=== PATIENT | male | born 1985 | race Caucasian/White ===

== ENCOUNTER 2020-11-28 04:21 | Inpatient (IN) | payer BC, SELFPAY ==
[2020-11-28] VITALS (11 sets, daily range): BP systolic 118–164; BP diastolic 72–97; PULSE 103–124; RESP 12–18; TEMP 36.1–37.1; O2SAT 97–100; BMI 25.5
--- NOTE | 2020-11-28 04:16 | PM.IMHP ---
H&P: HPI History of Present Illness Date/Time: 11/28/20 04:16 The patient presents with nausea and vomiting that started since yesterday morning. He denies any other symptoms with no diarrhea or abdominal pain. He also denies any fever or chills. He was evaluated in the [facility] for his symptoms. Labs from the [facility] shows: Recent at the [facility] had a blood sugar of 428 BUN 33 creatinine 1.9 sodium 141 potassium 5.5 chloride 99 bicarbonate 11.5 calcium 9.5 benign gap of 30.5. His CBC results showed WBC of 16.5 hemoglobin of 13.4 hematocrit of 40.6 platelet count of 337. His gastric occult blood was positive. His serum ketone was 6.6 which is elevated. His magnesium is 1.8. EKG shows sinus tachycardia with borderline right axis deviation with a rate of 126. His blood pressure has been stable with tachycardia of 120s at the [facility]. He reports that he has not missed his dose of Tresiba. He was started on a DKA protocol with insulin drip. He was transferred to our hospital for further treatment. Chief Complaint: nausea, vomiting Review of Systems Review of Systems: Narrative: - CONSTITUTIONAL: Denies weight loss, fever and chills. - HEENT: Denies changes in vision and hearing - RESPIRATORY: Denies SOB and cough. - CV: Denies palpitations and CP. - GI: Denies abdominal pain, reports nausea, vomiting, no diarrhea - : Denies dysuria and urinary frequency. - MSK: Denies myalgia and joint pain. - SKIN: Denies rash and pruritus. - NEUROLOGICAL: Denies headache and syncope. - PSYCHIATRIC: Denies recent changes in mood. Denies anxiety and depression. 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 Spiritual care concerns: No Meds Home Medications and Allergies Home Medications Medication Instructions Recorded Confirmed Type flash glucose scanning reader #1 each 02/05/20 02/05/20 History flash glucose sensor #1 each 02/05/20 02/05/20 History duloxetine 60 mg capsule,delayed 60 mg PO DAILY #90 cap 08/17/20 Rx release insulin lispro 200 unit/mL (3 mL) 7 unit SUBCUT TID #12 ml MDD 45 10/01/20 Rx subcutaneous pen pen needle, diabetic 32 gauge x #400 each 10/11/20 Rx insulin degludec 100 unit/mL (3 See Rx Instructions .ROUTE 11/24/20 Rx mL) subcutaneous pen .COMPLEX #30 ml Allergies Allergy/AdvReac Type Severity Reaction Status Date / Time No Known Allergies Allergy Unverified 10/24/19 11:12 Exam Narrative: Exam Narrative: GENERAL: The patient is well developed, not in acute distress HEENT: Nonicteric sclerae, PERRLA, EOMI. Oropharynx clear, dry mucous membranes. Conjunctivae appear well perfused. CHEST: Chest wall is nontender. HEART: tachycardic, sinus tach, without murmur, rubs, or gallops LUNGS: Clear to auscultation bilaterally. no respiratory distress ABDOMEN: Soft, positive bowel sounds, non-tender, no organomegaly. SKIN: No rash, no excessive bruising, petechiae, or purpura. NEUROLOGIC: Cranial nerves II-XII intact, alert and oriented x 3, no gross motor deficits EXTREMITIES: no edema, cyanosis or clubbing Assessment and Plan Assessment and plan (1) DKA (diabetic ketoacidoses): Code(s): E11.10 - Type 2 diabetes mellitus with ketoacidosis without coma Status: Acute (2) Type 1 diabetes mellitus: Qualifiers: Diabetes mellitus complication status: with hyperglycemia Qualified Code(s): E10.65 - Type 1 diabetes mellitus with hypergl
--- NOTE | 2020-11-28 06:00 | ADMGEN ---
This patient, Nate Calixto, was admitted to Intensive Care Unit-9. Patient/family oriented to hospital policies and general routines including ID bracelet, bed and alarms, visiting hours, pain management, procedures, bathroom and other care routines, personal items, smoking policy, room service/diet, and visiting hours. Information on how to activate the Rapid Response Team has been discussed. Patient/Family are encouraged to report perceived risks to care and to ask questions if they do not understand what they are told or what they should do.
[2020-11-28] MEDS: ONDANSETRON INJ 4 MG/2 ML VIAL IV PUSH ×3 (06:13→19:56)
[2020-11-28 06:18] LABS: Glucose Point of Care 238 (65-105)
[2020-11-28] MEDS: PANTOPRAZOLE SODIUM IV 40 MG VIAL IV PUSH ×2 (06:40→18:24)
[2020-11-28] MEDS: KCL 20 MEQ/D5/0.45% SOD CHL 1,000 ML 150 ML IV CONT (06:40)
[2020-11-28] MEDS: INSULIN HUMAN REGULAR (*BKC) 100 UNITS in SODIUM CHLORIDE 0.9% IV 99 ML IV CONT ×2 (06:41→19:56)
[2020-11-28 06:46] LABS: Anion Gap 20 mmol/L (8-16); Blood Urea Nitrogen 29 mg/dL (9-20); Calcium 9.9 mg/dL (8.4-10.2); Carbon Dioxide 17 mmol/L (22-30); Chloride 105 mmol/L (98-107); Estimated CRCL calculation 64 ml/min; Estimated Glomerular Filt Rate 46; Glucose 220 mg/dL (75-110); Magnesium 1.7 mg/dL (1.6-2.3); Phosphorus 2.8 mg/dL (2.5-4.5); Potassium 4.7 mmol/L (3.4-5.0); Sodium 142 mmol/L (137-145)
[2020-11-28 06:46] LABS: Hemoglobin A1C 10.2 % (<5.7); Lactic Acid Reflex 2.3 mmol/L (0.7-2.1)
[2020-11-28] MEDS: MAGNESIUM SULF 1 GM/D5W 100 ML 1 GM/100 ML BAG IVPB (07:16)
[2020-11-28 08:09] LABS: Beta-Hydroxybutyrate/Acetoacetate 6.32 mmol/L (0.02-0.27)
[2020-11-28 08:32] LABS: Glucose Point of Care 288 (65-105)
[2020-11-28 09:08] LABS: Anion Gap 18 mmol/L (8-16); Blood Urea Nitrogen 27 mg/dL (9-20); Calcium 9.3 mg/dL (8.4-10.2); Carbon Dioxide 16 mmol/L (22-30); Chloride 105 mmol/L (98-107); Estimated CRCL calculation 68 ml/min; Estimated Glomerular Filt Rate 50; Glucose 296 mg/dL (75-110); Potassium 4.8 mmol/L (3.4-5.0); Sodium 139 mmol/L (137-145)
[2020-11-28] MEDS: DEXTROSE 5%/0.45% SOD CHL 1,000 ML 150 ML IV CONT (09:20)
[2020-11-28 09:30] LABS: Reflex Lactic Acid Yes or No Add Lactic
--- NOTE | 2020-11-28 09:47 | WPDCNINT ---
Assessment and Plan Assessment and plan (1) DKA (diabetic ketoacidoses): Code(s): E11.10 - Type 2 diabetes mellitus with ketoacidosis without coma Status: Acute Assessment and Plan: Patient has received IV fluid bolus and is on IV infusion Continue Insulin infusion and Q1H glucose monitoring Serial labs Replace electrolytes as needed Will transition to SC insulin once AG is closed (2) Type 1 diabetes mellitus: Qualifiers: Diabetes mellitus complication status: with hyperglycemia Qualified Code(s): E10.65 - Type 1 diabetes mellitus with hyperglycemia Code(s): E10.9 - Type 1 diabetes mellitus without complications Status: Acute Assessment and Plan: See above (3) CHAZ (acute kidney injury): Code(s): N17.9 - Acute kidney failure, unspecified Status: Acute Assessment and Plan: Likely prerenal secondary to dehydration and hypovolemia Baseline unknown Creatinine is improving Continue IV fluids and monitor urine output electrolytes (4) Diabetic neuropathy: Code(s): E11.40 - Type 2 diabetes mellitus with diabetic neuropathy, unspecified Status: Acute Assessment and Plan: Resume Duloxetine Additional Plan DVT prophylaxis -SCDs Nutrition -start clear liquid diet Code Status - Full Code Forcer Maker Consult Note Consult date: 11/28/20 Time Seen: 08:00 HPI: Nate Calixto is a 35 year old male who was transferred from outside hospital with DKA. Patient presented there with chief complaint of nausea vomiting for 1 day. In ER he was diagnosed with DKA. He was given IV fluid bolus and started on insulin infusion and transferred to [facility]. He told me that he was feeling fine until yesterday morning when he started having nausea vomiting and was unable to keep anything down. He denied any fever chest pain shortness of breath cough abdominal pain diarrhea. After few episodes of vomiting he had some blood tinge and has vomitus but it was not persistent. At this time patient feels better and denies any nausea vomiting at this time. He feels he is not back to his baseline but otherwise feels better and no specific symptoms. All the systems were reviewed and were negative Past medical history diabetes diagnosed in 2014. He takes long-acting insulin 30 units daily and 5 units with meals plus sliding scale. 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 Spiritual care concerns: No Meds Home Medications and Allergies Home Medications Medication Instructions Recorded Confirmed Type flash glucose scanning reader #1 each 02/05/20 11/28/20 History flash glucose sensor #1 each 02/05/20 11/28/20 History duloxetine 60 mg capsule,delayed 60 mg PO DAILY #90 cap 08/17/20 11/28/20 Rx release pen needle, diabetic 32 gauge x #400 each 10/11/20 11/28/20 Rx insulin degludec [Tresiba U-100 32 unit SUBCUT DAILY 11/28/20 11/28/20 History Insulin] insulin lispro [Humalog KwikPen See Rx Instructions .ROUTE .COMPLEX 11/28/20 11/28/20 History Insulin] Allergies Allergy/AdvReac Type Severity Reaction Status Date / Time No Known Allergies Allergy Unverified 10/24/19 11:12 Vital Signs Vital Signs - 24 hr 11/28/20 06:22 11/28/20 07:57 11/28/20 08:00 Temperature 36.3 C L 36.4 C L Pulse Rate 124 H 123 H 123 H Respiratory Rate 18 14 Blood Pressure 14
[2020-11-28 10:08] LABS: Glucose Point of Care 265 (65-105)
[2020-11-28 12:36] LABS: Lactic Acid 1.3 mmol/L (0.7-2.1)
[2020-11-28 12:37] LABS: Anion Gap 8 mmol/L (8-16); Blood Urea Nitrogen 25 mg/dL (9-20); Calcium 9.4 mg/dL (8.4-10.2); Carbon Dioxide 25 mmol/L (22-30); Chloride 108 mmol/L (98-107); Estimated CRCL calculation 73 ml/min; Estimated Glomerular Filt Rate 54; Glucose 197 mg/dL (75-110); Potassium 4.3 mmol/L (3.4-5.0); Sodium 141 mmol/L (137-145)
[2020-11-28 13:28] LABS: Glucose Point of Care 205 (65-105)
[2020-11-28 13:28] LABS: Glucose Point of Care 175 (65-105)
[2020-11-28 13:28] LABS: Glucose Point of Care 220 (65-105)
[2020-11-28 14:23] LABS: Glucose Point of Care 157 (65-105)
[2020-11-28] MEDS: SODIUM CHLORIDE 0.45% 1,000 ML 100 ML IV CONT ×2 (14:48→23:49)
[2020-11-28] MEDS: INSULIN GLARGINE (*BKC) 100 UNITS/ML 30 UNITS SUB-Q (14:48)
[2020-11-28 15:41] LABS: Glucose Point of Care 144 (65-105)
[2020-11-28 16:42] LABS: Anion Gap 8 mmol/L (8-16); Blood Urea Nitrogen 23 mg/dL (9-20); Calcium 9.1 mg/dL (8.4-10.2); Carbon Dioxide 26 mmol/L (22-30); Chloride 107 mmol/L (98-107); Estimated CRCL calculation 78 ml/min; Estimated Glomerular Filt Rate 58; Glucose 146 mg/dL (75-110); Potassium 4.2 mmol/L (3.4-5.0); Sodium 141 mmol/L (137-145)
[2020-11-28 17:23] LABS: Add Urine Microscopic? YES; Appearance Urine Clear (Clear); Bilirubin Urine Negative (Negative); Blood Urine Negative (Negative); Color Urine Yellow (Yellow); Glucose Urine UA 3+ mg/dL (Negative); Ketones Urine 2+ mg/dL (Negative); Leukocyte Esterase Ur Negative LEU/UL (NEGATIVE); Nitrate Urine Negative (Negative); Protein Urine 1+ mg/dL (Negative); RBC Urine 0-2 /hpf (0-2); Urobilinogen Urine Negative mg/dL (<2.0); WBC Urine 0-3 /hpf (0-3)
[2020-11-28 17:48] LABS: Glucose Point of Care 212 (65-105)
[2020-11-28 18:49] LABS: Glucose Point of Care 156 (65-105)
[2020-11-28] MEDS: ACETAMINOPHEN 325 MG TABLET 650 MG PO (18:49)
--- NOTE | 2020-11-28 19:12 | P.PNCROSS_ITS ---
Event Note Event Note Event Note: Patient admitted by my colleague early this morning. Chart reviewed. Continue current care as patient remains in the ICU. Defer to instructor ballroom dancing ongoing management at this time.
[2020-11-28 19:49] LABS: Glucose Point of Care 111 (65-105)
[2020-11-28 20:33] LABS: Anion Gap 8 mmol/L (8-16); Blood Urea Nitrogen 22 mg/dL (9-20); Calcium 9.4 mg/dL (8.4-10.2); Carbon Dioxide 26 mmol/L (22-30); Chloride 107 mmol/L (98-107); Estimated CRCL calculation 83 ml/min; Estimated Glomerular Filt Rate > 60; Glucose 117 mg/dL (75-110); Potassium 3.9 mmol/L (3.4-5.0); Sodium 141 mmol/L (137-145)
[2020-11-28 21:00] LABS: Glucose Point of Care 108 (65-105)
[2020-11-28] MEDS: METOCLOPRAMIDE HCL INJ 10 MG/2 ML VIAL IV PUSH (21:47)
[2020-11-28 23:59] LABS: Glucose Point of Care 191 (65-105)
[2020-11-29] VITALS (12 sets, daily range): BP systolic 112–180; BP diastolic 57–112; PULSE 100–121; RESP 13–22; TEMP 36.4–37.2; O2SAT 96–98; BMI 25.8
[2020-11-29 03:56] LABS: Glucose Point of Care 270 (65-105)
[2020-11-29] MEDS: INSULIN ASPART (*BKC) 100 UNITS/ML SUB-Q ×8 (04:07→16:40)
[2020-11-29] MEDS: ONDANSETRON INJ 4 MG/2 ML VIAL IV PUSH ×2 (04:10→12:38)
[2020-11-29 05:06] LABS: Hematocrit 33.6 % (42.0-52.0); Hemoglobin 11.3 g/dL (14.0-18.0); Mean Corpuscular HGB Conc 33.6 g/dl (32-36); Mean Corpuscular Hemoglobin 29.1 pg (26-34); Mean Corpuscular Volume 86.6 fl (80-100); Mean Platelet Volume 9.9 fl (7.4-10.4); Platelet Count Result 270 k/mm3 (150-375); Red Blood Count 3.88 M/mm3 (4.6-6.20); Red Cell Distribution Width 14.2 % (11.5-14.5); White Blood Count 8.9 K/mm3 (4.5-10.0)
[2020-11-29 05:19] LABS: Alanine Aminotransferase 15 U/L (4-50); Albumin Level 3.8 g/dL (3.5-5.1); Alkaline Phosphatase 73 U/L (38-126); Anion Gap 13 mmol/L (8-16); Aspartate Amino Transferase 28 U/L (17-59); Bilirubin,Total 0.7 mg/dL (0.2-1.3); Blood Urea Nitrogen 18 mg/dL (9-20); Calcium 9.2 mg/dL (8.4-10.2); Carbon Dioxide 22 mmol/L (22-30); Chloride 105 mmol/L (98-107); Estimated CRCL calculation 78 ml/min; Estimated Glomerular Filt Rate 58; Glucose 288 mg/dL (75-110); Magnesium 1.7 mg/dL (1.6-2.3); Sodium 140 mmol/L (137-145)
[2020-11-29] MEDS: PANTOPRAZOLE SODIUM IV 40 MG VIAL IV PUSH (05:50)
[2020-11-29 06:01] LABS: Glucose Point of Care 244 (65-105)
[2020-11-29 08:42] LABS: Glucose Point of Care 246 (65-105)
[2020-11-29] MEDS: INSULIN GLARGINE (*BKC) 100 UNITS/ML 40 UNITS SUB-Q (08:42)
--- NOTE | 2020-11-29 08:50 | PM.IMPN ---
Progress Note: A&P Assessment and Plan (1) DKA (diabetic ketoacidoses): Qualifiers: Diabetes mellitus type: type 1 Diabetes mellitus complication detail: without coma Qualified Code(s): E10.10 - Type 1 diabetes mellitus with ketoacidosis without coma Code(s): E11.10 - Type 2 diabetes mellitus with ketoacidosis without coma Status: Acute Assessment and Plan: Patient started on DKA protocol on admission. With anion gap closed, transitioned to Lantus, mealtime insulin and sliding scale insulin. Glucose reviewed on 11/29/2020 with level still in the 200s. Lantus increased today. Patient still with nausea. Will monitor. May be able to transfer from ICU later today if patient is stable. Telemetry reviewed on 11/29/2020 with mild sinus tachycardia. (2) Type 1 diabetes mellitus: Qualifiers: Diabetes mellitus complication status: with hyperglycemia Qualified Code(s): E10.65 - Type 1 diabetes mellitus with hyperglycemia Code(s): E10.9 - Type 1 diabetes mellitus without complications Status: Acute Assessment and Plan: Not well controlled with hemoglobin A1c 10.2. Will continue insulin as noted above. Continue to adjust treatment as needed. Will need to follow-up with his casing material weigher after discharge. (3) CHAZ (acute kidney injury): Code(s): N17.9 - Acute kidney failure, unspecified Status: Acute Assessment and Plan: Creatinine remains slightly elevated at 1.40 today. Remains on IV fluids. Will continue to monitor while here. (4) Diabetic neuropathy: Qualifiers: Diabetes mellitus type: type 1 Diabetes mellitus complication detail: diabetic polyneuropathy Qualified Code(s): E10.42 - Type 1 diabetes mellitus with diabetic polyneuropathy Code(s): E11.40 - Type 2 diabetes mellitus with diabetic neuropathy, unspecified Status: Acute Assessment and Plan: No acute issue at this time. Will continue duloxetine. Will monitor. Time Spent With Patient Time with patient: 15 - 25 minutes Subjective Date/time seen: 11/29/20 08:50 Interval history: Date of Service: 11/29/2020. Admitted with DKA. Discontinued from insulin drip approximately 9:00 p.m. last night. Still having some nausea this morning. Dry heaves noted but no vomiting this morning. Denies abdominal pain. No diarrhea. No headache or dizziness. No chest pain or shortness of breath. Is having some shaking at time of my exam. No fever. Review of Systems Review of Systems: Narrative: Still not feeling well. Constitutional: Constitutional: Denies chills and Denies fever(s) Eyes: Eyes: Reports no additional eye complaints ENT: Denies sore throat Cardiovascular: Cardiovascular: Denies chest pain Respiratory: Respiratory: Denies dyspnea Gastrointestinal: Gastrointestinal: Denies abdominal pain, Denies diarrhea, Reports nausea and Denies vomiting Genitourinary: Genitourinary: Reports no additional male genitourinary complaints Musculoskeletal: Musculoskeletal: Reports no additional musculoskeletal complaints Integumentary/Breasts: Skin/Breast: Denies lesions and Denies rash Neurologic: Denies dizziness and Denies headache(s) Psychiatric: Psychiatric: Denies anxiety Exam Narrative: Exam Narrative: Awake and alert. Const: General: No acute distress HENMT: Mouth: Yes moist mucous membranes Neck: Neck: supple and no lymphadenopathy noted Resp: Effort & Inspection: normal respiratory effort Auscultation: clear to auscultation bilaterally, no rales and no wheezes Cardio: Rate: regular rate Rhythm: regular rhythm GI: Inspection: non-distended GI Palp: No abdominal tenderness and Yes Soft to palpation Auscultation: normal bowel sounds : Other: Not examined Skin: General skin exam: normal color and no rashes or lesions noted Neuro: General: patient oriented x3 Other: Moving all extremities equally and well Extrem: General: no edema
[2020-11-29] MEDS: DULoxetine HCL 60 MG CAPSULE.DR PO (09:15)
[2020-11-29] MEDS: PROCHLORPERAZINE MALEATE 5 MG TABLET 10 MG PO (09:15)
--- NOTE | 2020-11-29 09:22 | WPDINTPN ---
Progress Note: A&P Assessment and Plan (1) DKA (diabetic ketoacidoses): Qualifiers: Diabetes mellitus type: type 1 Diabetes mellitus complication detail: without coma Qualified Code(s): E10.10 - Type 1 diabetes mellitus with ketoacidosis without coma Code(s): E11.10 - Type 2 diabetes mellitus with ketoacidosis without coma Status: Acute Assessment and Plan: P anion gap has closed but patient is still not eating regular diet Increase Lantus to 40 units subcu 5 units insulin with meals plus sliding scale Advance diet as tolerated (2) Type 1 diabetes mellitus: Qualifiers: Diabetes mellitus complication status: with hyperglycemia Qualified Code(s): E10.65 - Type 1 diabetes mellitus with hyperglycemia Code(s): E10.9 - Type 1 diabetes mellitus without complications Status: Acute Assessment and Plan: See above (3) CHAZ (acute kidney injury): Code(s): N17.9 - Acute kidney failure, unspecified Status: Acute Assessment and Plan: Likely prerenal secondary to dehydration and hypovolemia Baseline unknown Creatinine is improving Continue IV fluids and monitor urine output electrolytes (4) Diabetic neuropathy: Qualifiers: Diabetes mellitus type: type 1 Diabetes mellitus complication detail: diabetic polyneuropathy Qualified Code(s): E10.42 - Type 1 diabetes mellitus with diabetic polyneuropathy Code(s): E11.40 - Type 2 diabetes mellitus with diabetic neuropathy, unspecified Status: Acute Assessment and Plan: Resume Duloxetine (5) Nausea: Code(s): R11.0 - Nausea Status: Acute Assessment and Plan: Continue p.r.n. Zofran. I ordered 1 times Compazine. He did get a dose of Reglan last night but did not help Additional Plan DVT prophylaxis -SCDs Nutrition -advance as tolerated Code Status - Full Code Subjective Date/time seen: 11/29/20 1315 Patient states he feels better than yesterday but continues to have some nausea. He drank 1 bottle of Ensure for dinner yesterday but had vomiting. At this time he states he was going to try food this morning. He denies any other complaints abdominal pain fever chest pain shortness of breath cough headache diarrhea . He was transitioned off of insulin infusion last night since his anion gap was closed and insulin drip was at 2-3 units/hour Review of Systems Review of Systems: All systems reviewed & are unremarkable except as noted in HPI and below (HPI) Exam Narrative: Exam Narrative: General: Pt is alert awake and in NAD Lungs/Chest: Trachea central Clear BS B/L, No crackles or wheezing. Cardiac: RRR. Normal S1 S2. No murmurs Circulation: Pedal pulses are intact and symmetrical. Abdomen: Normal bowel sounds.. Soft. NT. ND. Extremities: No clubbing, cyanosis or edema. Warm : Bailey in place Neurologic: Follows commands. Moves all 4 extremities PERRL Skin: No Rash Objective Data Vital Signs Vital Signs: Vital Signs - 24 hr 11/28/20 10:00 11/28/20 12:00 11/28/20 14:00 Temperature 36.1 C L Pulse Rate 120 H 113 H 112 H Respiratory Rate 14 12 16 Blood Pressure 127/72 154/94 H Pulse Oximetry 98 98 97 11/28/20 15:50 11/28/20 16:00 11/28/20 18:00 Temperature 36.9 C Pulse Rate 103 H 103 H 111 H Respiratory Rate 14 12 Blood Pressure 164/97 H 118/73 Pulse Oximetry 98 99 11/28/20 20:00 11/28/20 22:00 11/29/20 00:00 Temperature 37.1 C 36.8 C Pulse Rate 110 H 114 H 110 H Respiratory Rate 13 12 22 H Blood Pressure 149/82 H 137/88 167/90 H Pulse Oximetry 99 98 96 11/29/20 02:00 11/29/20 04:00 11/29/20 06:00 Temperature 36.8 C Pulse Rate 100 104 H 121 H Respiratory Rate 18 16 22 H Blood Pressure 112/57 L 141/68 H 140/89 Pulse Oximetry 97 97 96 11/29/20 08:00 Temperature 37.0 C Pulse Rate 111 H Respiratory Rate 22 H Blood Pressure 122/98 H Pulse Oximetry 98 Intake/Output Intake/Output: Intake & Output 11/26/20
[2020-11-29] MEDS: SODIUM CHLORIDE 0.45% 1,000 ML 50 ML IV CONT (10:14)
[2020-11-29 11:05] LABS: Glucose Point of Care 244 (65-105)
[2020-11-29] MEDS: LABETALOL HCL INJ 100 MG/20 ML VIAL 20 MG IV PUSH (12:38)
[2020-11-29] MEDS: METOCLOPRAMIDE HCL 5 MG TABLET PO (16:36)
[2020-11-29 16:51] LABS: Glucose Point of Care 222 (65-105)
--- NOTE | 2020-11-29 18:00 | PC.NURSE ---
This patient, Nate Calixto, was transferred to [facility] on 11/29/20 at 1800. Personal belongings sent with patient. Report given to HARRY Pena. Appropriate documentation sent with patient.
--- NOTE | 2020-11-29 18:01 | PC.NURSE ---
This patient, Nate Calixto, was received from ICU on 11/29/20 at 1800. Patient/family oriented to unit policies and routines
[2020-11-29] MEDS: PANTOPRAZOLE 40 MG TABLET PO (20:47)
[2020-11-29 21:39] LABS: Glucose Point of Care 295 (65-105)
[2020-11-30] VITALS (7 sets, daily range): BP systolic 135–182; BP diastolic 78–82; PULSE 91–109; RESP 16–18; TEMP 36.2–36.7; O2SAT 98–100
[2020-11-30] MEDS: LABETALOL HCL INJ 100 MG/20 ML VIAL 20 MG IV PUSH (00:40)
[2020-11-30 02:36] LABS: Glucose Point of Care 232 (65-105)
[2020-11-30 04:13] LABS: Glucose Point of Care 204 (65-105)
[2020-11-30] MEDS: ACETAMINOPHEN 325 MG TABLET 650 MG PO (05:32)
[2020-11-30 05:46] LABS: Hematocrit 32.9 % (42.0-52.0); Hemoglobin 11.1 g/dL (14.0-18.0); Mean Corpuscular HGB Conc 33.7 g/dl (32-36); Mean Corpuscular Hemoglobin 28.9 pg (26-34); Mean Corpuscular Volume 85.7 fl (80-100); Mean Platelet Volume 9.7 fl (7.4-10.4); Platelet Count Result 215 k/mm3 (150-375); Red Blood Count 3.84 M/mm3 (4.6-6.20); Red Cell Distribution Width 13.4 % (11.5-14.5); White Blood Count 6.3 K/mm3 (4.5-10.0)
[2020-11-30 06:03] LABS: Alanine Aminotransferase 16 U/L (4-50); Albumin Level 3.7 g/dL (3.5-5.1); Alkaline Phosphatase 67 U/L (38-126); Anion Gap 4 mmol/L (8-16); Aspartate Amino Transferase 27 U/L (17-59); Blood Urea Nitrogen 14 mg/dL (9-20); Calcium 9.3 mg/dL (8.4-10.2); Carbon Dioxide 33 mmol/L (22-30); Chloride 100 mmol/L (98-107); Estimated CRCL calculation 98 ml/min; Estimated Glomerular Filt Rate > 60; Glucose 234 mg/dL (75-110); Magnesium 1.6 mg/dL (1.6-2.3); Potassium 3.5 mmol/L (3.4-5.0); Sodium 137 mmol/L (137-145)
[2020-11-30] MEDS: METOCLOPRAMIDE HCL 5 MG TABLET PO (07:58)
[2020-11-30] MEDS: DULoxetine HCL 60 MG CAPSULE.DR PO (08:01)
[2020-11-30] MEDS: amLODIPine BESYLATE 5 MG TABLET PO (08:01)
[2020-11-30] MEDS: PANTOPRAZOLE 40 MG TABLET PO (08:01)
[2020-11-30] MEDS: INSULIN ASPART (*BKC) 100 UNITS/ML SUB-Q ×4 (08:21→12:34)
[2020-11-30] MEDS: INSULIN GLARGINE (*BKC) 100 UNITS/ML 40 UNITS SUB-Q (08:22)
[2020-11-30 08:58] LABS: Glucose Point of Care 248 (65-105)
[2020-11-30 11:50] LABS: Glucose Point of Care 221 (65-105)
--- NOTE | 2020-11-30 12:12 | PM.DS ---
DS: Admitting Diagnosis Admitting Diagnosis Admitting Diagnosis: Nausea and vomiting DS: Discharge Diagnosis Discharge Diagnosis (1) DKA (diabetic ketoacidoses): Qualifiers: Diabetes mellitus complication detail: without coma Diabetes mellitus type: type 1 Qualified Code(s): E10.10 - Type 1 diabetes mellitus with ketoacidosis without coma Code(s): E11.10 - Type 2 diabetes mellitus with ketoacidosis without coma Status: Acute Assessment and Plan: Patient started on DKA protocol on admission. With anion gap closed, he was transitioned to Lantus, mealtime insulin and sliding scale insulin. Nausea resolved. Glucose with level still in the 200s so Lantus increased. wellness educator and auto bumper mechanic worked with patient. (2) Type 1 diabetes mellitus: Qualifiers: Diabetes mellitus complication status: with hyperglycemia Qualified Code(s): E10.65 - Type 1 diabetes mellitus with hyperglycemia Code(s): E10.9 - Type 1 diabetes mellitus without complications Status: Acute Assessment and Plan: Not well controlled with hemoglobin A1c 10.2. Patient states his glucose normally runs in the 160-180 range but has been running into the 250 range more recently. He has not followed up with his milling machine operator recently. He is not sure why his glucose has become more poorly controlled. He has adjusted his diet without much benefit. Patient was instructed to check glucose 4 times a day and to follow-up with his milling machine operator after discharge. (3) CHAZ (acute kidney injury): Code(s): N17.9 - Acute kidney failure, unspecified Status: Acute Assessment and Plan: Creatinine was elevated at 1.9 on admission related to pre-renal/dehydration from the DKA. With IV fluids, Cr has improved to 1.1 today. Elevated BP noted at times but felt more likely related to the DKA and fluids. Will stop Norvasc and have him follow up with his doctor for re-evaluation. (4) Diabetic neuropathy: Qualifiers: Diabetes mellitus complication detail: diabetic polyneuropathy Diabetes mellitus type: type 1 Qualified Code(s): E10.42 - Type 1 diabetes mellitus with diabetic polyneuropathy Code(s): E11.40 - Type 2 diabetes mellitus with diabetic neuropathy, unspecified Status: Acute Assessment and Plan: No acute issue at this time. Patient states he has a history neurogenic bladder in the past requiring straight cath but does not straight cath anymore. He has no issues during the day but has to wear depends at night he states. We continued duloxetine. DS: Summary Hospital Course Reason for hospitalization: 35yo male with Type I DM here for nausea and vomiting and found to have DKA. Please see H&P for details. Hospital Course: Please see above for details hospital course. Status at Discharge Cognitive/behavioral status at discharge: Stable Time Spent with Patient Time attestation: Total time spent providing and/or coordinating discharge services: 35 minutes Time spent: Greater than 30 minutes Specific discharge activities: patient Education Exam Narrative: Exam Narrative: AF 97.2 135/82 109 18 100% ra Gen - NARD Chest - CTA bilaterally, nml RR CV - RRR S1/S2 Abd -Soft. Nontender. Bladder does feel distended Ext - No pedal edema Psych - Nml mood and affect Skin - Warm and dry DS: Data Data Completed and Pending Labs on day of discharge: Labs from last 24 hours 11/30/20 11/30/20 11/30/20 11:47 08:20 05:27 WBC RBC Hgb Hct MCV MCH MCHC RDW Plt Count MPV Sodium 137 Potassium 3.5 Chloride 100 Carbon Dioxide 33 H Anion Gap 4 L BUN 14 Creatinine 1.10 Estim Creat Clear Calc 98 Estimated GFR > 60 Glucose 234 H POC Capillary Glucose 221 H 248 H Calcium 9.3 Magnesium 1.6 Total Bilirubin 1.0 AST 27 ALT 16 Alkaline Phosphatase 67 Total
[2020-11-30 12:28] LABS: Glucose Point of Care 228 (65-105)
--- NOTE | 2020-12-06 15:26 | PC.NURSE ---
Blood cx are negative. Dr. Bhupinder gentile.
--- NOTE | 2020-12-10 12:37 | PC.NURSE ---
Blood cx are negative. Dr. Roe is aware.
== END 2020-11-30 13:43 | disposition home or self-care (01) | DRG 638 ==
LOC: ANHICU 11-29 17:55 → ANH2MED 11-30 12:31 → ANHICU 12-02 09:52
PROVIDERS: Internal Medicine; Admitting Provider Internal Medicine; PCP Internal Medicine; Visit Provider Internal Medicine
DX: E10.10 Type 1 diabetes mellitus with ketoacidosis without coma (principal); N17.9 Acute kidney failure, unspecified; E10.42 Type 1 diabetes mellitus with diabetic polyneuropathy; E10.319 Type 1 diabetes mellitus with unspecified diabetic retinopathy without macular edema; D72.829 Elevated white blood cell count, unspecified; Z79.4 Long term (current) use of insulin
CPT/HCPCS: 36415; 80048; 80053; 81001; 82010; 82948; 83036; 83605; 83735; 84100; 85027; 87040; 97161; 97165; A9270; C9113; J1815; J2405; J2765; J3475; J3480

== ENCOUNTER 2022-09-09 10:48 | Day surgery (SDC) | payer BC, SELFPAY ==
[2022-09-09] VITALS (14 sets, daily range): BP systolic 132–181; BP diastolic 90–116; PULSE 84–104; RESP 12–20; TEMP 36.3–36.7; O2SAT 94–99
--- NOTE | ~2022-09-09 | XR_ITS ---
XR urethrocystogram Urethrocystogram TECHNIQUE: Fluoroscopy used during Urethrocystogram performed by [Carlos Ramirez MD] on 09/09/2022. 126 seconds of fluoroscopy. with 60 images captured.] FINDINGS: Retrograde contrast administration into the urethra demonstrates multiple strictures in the proximal urethra, although there is retrograde filling of contrast into the bladder. Correlate with procedure note. IMPRESSION: Fluoroscopy used during Urethrocystogram. Please refer to procedural report for details. Reviewed, dictated and finalized at location A. DINATOR SKILL TRAINING PROGRAM IMPRESSION: Fluoroscopy used during Urethrocystogram. Please refer to procedura l report for details.
--- NOTE | 2022-09-09 11:11 | ED.MALEGU ---
HPI - Male Genitourinary General Chief complaint: Urogenital-Male Stated complaint: kimble placement History of Present Illness HPI Narrative: Patient is a 37-year-old male who presents ER for Kimble catheter placement. He was transferred here from [facility]. Patient has history of neurogenic bladder related to diabetes. He self catheterizes. He had improved however the last couple weeks he has been having increased difficulty urinating. He was transferred here because urology is planning on placing Kimble catheter as patient cannot be accessed by multiple nurses and the physician at outside hospital. Related Data Home Medications Medication Instructions Recorded Confirmed insulin admin supplies (InPen (for #1 ea 06/08/22 06/08/22 Humalog) Blue subcutaneous) Allergies Allergy/AdvReac Type Severity Reaction Status Date / Time No Known Allergies Allergy Verified 09/09/22 11:16 Review of Systems Review of Systems: All systems reviewed & are unremarkable except as noted in HPI and below Constitutional: Constitutional: Denies chills and Denies fever(s) Gastrointestinal: Gastrointestinal: Denies nausea and Denies vomiting Genitourinary: Genitourinary: Denies dysuria, Denies penile discharge and Denies testicular pain Comments: Urinary retention PMFSH Past Medical History Medical History CHAZ (acute kidney injury) Alopecia areata Body mass index (BMI) 21 to less than 23 (06/04/18) Diabetic neuropathy DKA (diabetic ketoacidoses) Erectile dysfunction Hypertension Low vitamin D level Right foot ulcer Secondary male hypogonadism Type 1 diabetes mellitus with hyperglycemia Surgical History Surgical History Previous back surgery tailbone infection, and removal of part of the tailbone Family History Family History Mother Diabetes mellitus Other Cerebrovascular accident Family history of hearing loss Hypertension Social History Social History Smoking status: Never smoker Alcohol intake: current Alcohol use details: socially Substance use: never Living arrangements: with family Occupation/Education: occupation 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 HEAD: Normocephalic, atraumatic. ENT: Mucous membranes moist. NECK: Supple. CHEST: Clear to auscultation. No respiratory distress. HEART: Regular rate and rhythm. Normal peripheral pulses. ABDOMEN: Soft, mild suprapubic tenderness with palpation without guarding, nondistended. EXTREMITIES: Normal range of motion. No edema. SKIN: Warm, dry, no rash. NEURO: Alert and oriented x3. PSYCH: Normal mood and affect. Course Course Emergency Course: Patient will go to the OR with Dr. Ramirez for Kimble placement. Vital Signs Vital signs: Vital Signs Temperature 98.1 F 09/09/22 10:47 Pulse Rate 103 H 09/09/22 10:47 Respiratory Rate 15 09/09/22 10:47 Blood Pressure 181/112 H 09/09/22 10:47 Pulse Oximetry 99 09/09/22 10:47 Oxygen Delivery Room Air 09/09/22 10:47 Temperature 97.3 F L 09/09/22 14:10 Pulse Rate 84 09/09/22 15:49 Respiratory Rate 12 09/09/22 15:49 Blood Pressure 132/105 H 09/09/22 15:49 Pulse Oximetry 97 09/09/22 14:45 Oxygen Delivery Room Air 09/09/22 15:49 MDM - Male Genitourinary Lab Data Labs: Lab Results 09/09/22 Range/Units 14:35 POC Capillary Glucose 201 H (65-105) mg/dl Discharge Plan Discharge Clinical Impression: Acute urinary retention Patient Disposition: Still a Patient Condition: Stable Additional Instructions: discharged home with Kimble cathete
--- NOTE | 2022-09-09 11:39 | PC.NURSE ---
urologist here at bedside, will try to insert catheter.
--- NOTE | 2022-09-09 12:10 | PC.NURSE ---
Pt will need to go to OR, urologist not able to complete the procedure at bedside.
--- NOTE | 2022-09-09 12:29 | WPDANESEPPF ---
Anes - Initial Pre Proc Eval Procedure: Operation Date: 09/09/22 13:15 Proposed Procedures p Cystoscopy, Urethral Dilatation - Carlos Ramirez MD Date/Time: 09/09/22 12:29 Pre Op Diagnosis: kimble placement Patient Data Age: 37 Gender: M Height: 1.88 m Weight: 97.5 kg Last Vital Signs Temp 36.7 C 09/09/22 10:47 Pulse 103 H 09/09/22 12:01 Resp 18 09/09/22 12:01 BP 159/105 H 09/09/22 12:01 Pulse Ox 99 09/09/22 11:31 O2 Del Method Room Air 09/09/22 10:47 Allergies Allergy/AdvReac Type Severity Reaction Status Date / Time No Known Allergies Allergy Verified 09/09/22 11:16 Home Medications Medication Instructions Recorded Confirmed Type OneTouch Verio test strips (blood #400 ea 10/19/21 06/08/22 Rx sugar diagnostic) insulin degludec 100 unit/mL (3 See Rx Instructions .Route 02/09/22 06/08/22 Rx mL) subcutaneous pen (Tresiba .COMPLEX #36 mL FlexTouch U-100 insulin) blood-glucose sensor (FreeStyle #6 ea 06/08/22 06/08/22 Rx Shahrzad 3 Sensor device) insulin admin supplies (InPen (for #1 ea 06/08/22 06/08/22 History Humalog) Blue subcutaneous) insulin lispro 100 unit/mL 75 unit (0.75 mL) subcut DAILY 90 06/08/22 06/08/22 Rx subcutaneous cartridge (Humalog days #75 mL U-100 Insulin) ciprofloxacin HCl 500 mg tablet 500 mg PO Q12H #20 tabs 06/13/22 Rx (Cipro) pen needle, diabetic 32 gauge x #400 ea 07/10/22 Rx 5/32 (BD Sydnie 2nd Gen Pen Needle) duloxetine 60 mg capsule,delayed 60 mg PO DAILY 90 days #90 caps 08/21/22 Rx release Patient hx anesthesia problems: none Family hx anesthesia problems: none Results Review: All pre-operative results and documents have been reviewed as part of the pre-operative evaluation. [facility] Past Medical History Medical History CHAZ (acute kidney injury) Alopecia areata Body mass index (BMI) 21 to less than 23 (06/04/18) Diabetic neuropathy DKA (diabetic ketoacidoses) Erectile dysfunction Hypertension Low vitamin D level Right foot ulcer Secondary male hypogonadism Type 1 diabetes mellitus with hyperglycemia Surgical History Surgical History Previous back surgery tailbone infection, and removal of part of the tailbone Family History Family History Mother Diabetes mellitus Other Cerebrovascular accident Family history of hearing loss Hypertension Social History Social History Smoking status: Never smoker Alcohol intake: current Alcohol use details: socially Substance use: never Living arrangements: with family Occupation/Education: occupation 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 Informed Consent: The patient's anesthetic plan and its attendant risks and benefits were discussed with the patient/family/POA. Questions were solicited and answers provided to the satisfaction of the patient/family/POA.
--- NOTE | 2022-09-09 13:06 | PM.IMHP ---
H&P: HPI History of Present Illness Date/Time: 09/09/22 13:06 Chief Complaint: urinary retention Narrative: 37-year-old male who has had some difficulty voiding over the past day or 2. He also had developed some bilateral flank pain. Mansoor presented to [place] where they were unable to place a catheter and had a bladder scan residual 600 cc. Patient is transferred to [place] for more definitive therapy. Patient states that he has not catheterized for many years. [facility] Past Medical History Medical History CHAZ (acute kidney injury) Alopecia areata Body mass index (BMI) 21 to less than 23 (06/04/18) Diabetic neuropathy DKA (diabetic ketoacidoses) Erectile dysfunction Hypertension Low vitamin D level Right foot ulcer Secondary male hypogonadism Type 1 diabetes mellitus with hyperglycemia Surgical History Surgical History Previous back surgery tailbone infection, and removal of part of the tailbone Family History Family History Mother Diabetes mellitus Other Cerebrovascular accident Family history of hearing loss Hypertension Social History Social History Smoking status: Never smoker Alcohol intake: current Alcohol use details: socially Substance use: never Living arrangements: with family Occupation/Education: occupation 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 Spiritual care concerns: No Meds Home Medications and Allergies Home Medications Medication Instructions Recorded Confirmed Type OneTouch Verio test strips (blood #400 ea 10/19/21 06/08/22 Rx sugar diagnostic) insulin degludec 100 unit/mL (3 See Rx Instructions .Route 02/09/22 06/08/22 Rx mL) subcutaneous pen (Tresiba .COMPLEX #36 mL FlexTouch U-100 insulin) blood-glucose sensor (FreeStyle #6 ea 06/08/22 06/08/22 Rx Shahrzad 3 Sensor device) insulin admin supplies (InPen (for #1 ea 06/08/22 06/08/22 History Humalog) Blue subcutaneous) insulin lispro 100 unit/mL 75 unit (0.75 mL) subcut DAILY 90 06/08/22 06/08/22 Rx subcutaneous cartridge (Humalog days #75 mL U-100 Insulin) ciprofloxacin HCl 500 mg tablet 500 mg PO Q12H #20 tabs 06/13/22 Rx (Cipro) pen needle, diabetic 32 gauge x #400 ea 07/10/22 Rx /32 (BD Sydnie 2nd Gen Pen Needle) duloxetine 60 mg capsule,delayed 60 mg PO DAILY 90 days #90 caps 08/21/22 Rx release Allergies Allergy/AdvReac Type Severity Reaction Status Date / Time No Known Allergies Allergy Verified 09/09/22 11:16 Vital Signs Vital Signs - 24 hr 09/09/22 10:47 09/09/22 11:16 09/09/22 10:56 Temperature 36.7 C Pulse Rate 103 H 100 94 Respiratory Rate 15 18 18 Blood Pressure 181/112 H 181/112 H Pulse Oximetry 99 96 98 Oxygen Delivery Room Air 09/09/22 11:01 09/09/22 11:31 09/09/22 12:01 Temperature Pulse Rate 98 104 H 103 H Respiratory Rate 20 18 Blood Pressure 176/116 H 181/104 H 159/105 H Pulse Oximetry 97 99 Oxygen Delivery 09/09/22 12:39 Temperature Pulse Rate 99 Respiratory Rate 18 Blood Pressure 150/90 H Pulse Oximetry 98 Oxygen Delivery Exam Const: General: cooperative and well developed; No comfortable Chest: Chest palpation & inspection: normal inspection of the chest Resp: Effort & Inspection: normal respiratory effort Cardio: Rate: regular rate Rhythm: regular rhythm GI: Inspection: normal to inspection : Penis: Yes normal penis and Yes circumcised Scrotum: scrotum normal Assessment and Plan Assessment and plan (1) Urinary retention: Code(s): R33.9 - Retention of urine, unspecified Status: Acute Assessment and Plan: who etiology unclear but may be more now due to his urethral strictur
--- NOTE | 2022-09-09 13:11 | WPDHPUPDATE1 ---
History and Physical Update Update Date/Time: 09/09/22 13:11 History and Physical has been reviewed, including an updated exam of the patient. There are NO changes in the patient's condition. Risks, benefits, and alternatives have been discussed and questions answered. Patient agrees to proceed with procedure. proceed with cystoscopy, retrograde urethrogram, urethral dilation, possible suprapubic tube placement
[2022-09-09] MEDS: LIDOCAINE HCL 2% GEL UROJET 10 ML PKG MUCOUS MEM (13:44)
--- NOTE | 2022-09-09 14:06 | P.OP_ITS ---
Procedure Note - Detailed Date of Procedure 09/09/22 Pre-op Diagnosis Urethral stricture Post-op Diagnosis Same ( dense bulbar urethral stricture) Procedure Performed cystoscopy, retrograde urethrogram, urethral dilation, complex Bailey catheter placement 10 Vincentian Bailey with 10 cc in balloon Surgeon Carlos Ramirez MD Anesthesia General Findings extremely tight dense stricture which could not be dilated past 12 Vincentian. Description of Procedure Patient is taken the operative suite correctly identified. Once anesthesia was obtained was placed in dorsal lithotomy position and prepped draped usual sterile fashion. Retrograde urethrogram was performed which revealed a very tight stricture which appeared to be about a cm in length in the bulbar urethra. Twenty-two Vincentian scope was inserted into the urethra. I was able to manipulate a angled Glidewire through this very tight stricture. I then used an 8 Vincentian open-ended dilator that was included in the amplants kit to place over the Glidewire and was able to dilated into the bladder. Even this 8 Vincentian was very tight. I then exchanged the Glidewire for a Super Stiff wire. It was very difficult but I was able to dilate to a 12 Vincentian but that was the extent of it. Could not dilate any further. At this point a 10 Vincentian catheter was placed over the guidewire into the bladder. 10 cc in the balloon were placed. I did aspirate 150 cc of fluid from the bladder and then connected it to drainage. Patient was taken recovery stable condition. I would not remove this Bailey catheter at this point time. Patient will need to have an evaluation by a reconstructive urologist due to this very tight dense stricture. I will have him see our partner Dr. Tobias. Please send a copy this to my office. Estimated Blood Loss 0 Drains Yes ( 10 Vincentian Bailey) Packing No Pathology None sent Complications No immediate complications Condition Stable Disposition PACU
[2022-09-09] MEDS: LACTATED RINGERS 1,000 ML 30 ML IV CONT (14:10)
[2022-09-09] MEDS: HALOPERIDOL LACTATE 5 MG/ML VIAL 1 MG IV PUSH (14:20)
[2022-09-09] MEDS: SCOPOLAMINE 1.5 MG PATCH TRANSDERM (14:20)
--- NOTE | 2022-09-09 14:37 | P.OP_ITS ---
Procedure Note - Detailed Date of Procedure 09/09/22 Pre-op Diagnosis Urinary retention Post-op Diagnosis Same (Tight bulbar urethral stricture) Procedure Performed Flexible cystoscopy at bedside in the emergency room Surgeon Carlos Ramirez MD Anesthesia Local Description of Procedure Patient was prepped and draped usual sterile fashion. 2% viscous lidocaine was inserted into the urethra. Sixteen Indonesian flexible scope was inserted into the meatus. Patient was noted to have a very tight bulbar urethral stricture. We attempted to place a guidewire through the stricture or unsuccessfully patient was extremely uncomfortable. At this point the procedure was terminated. Patient will be taken to the operative suite for formal operative intervention Estimated Blood Loss 0 Drains No Packing No Pathology None sent Complications No immediate complications Condition Stable Disposition Other (To the operating room)
[2022-09-09 14:39] LABS: Glucose Point of Care 201 mg/dl (65-105)
--- NOTE | 2022-09-09 14:55 | SUR.PHASEI ---
anestesia aware of glucose of 201 and elevated bp. no orders at this time and ok to dc home.
--- NOTE | 2022-09-09 15:32 | SUR.PHASEII ---
pt going home with catheter, he is familiar on how to use, he is a [employer], pt discharged home with mother in stable condition.
== END 2022-09-09 15:55 | disposition still patient (30) ==
LOC: ANHED 09-11 10:33
PROVIDERS: Urology; PCP Family Medicine; Visit Provider Emergency Medicine
PROC: 0T7D8ZZ Dilation of Urethra, Via Natural or Artificial Opening Endoscopic (ICD-10-PCS; CPT 52281; principal; 2022-09-09 13:15)
DX: N35.912 Unspecified bulbous urethral stricture, male (principal); R33.8 Other retention of urine; N31.9 Neuromuscular dysfunction of bladder, unspecified; E10.69 Type 1 diabetes mellitus with other specified complication; E10.40 Type 1 diabetes mellitus with diabetic neuropathy, unspecified; I10 Essential (primary) hypertension; Z79.4 Long term (current) use of insulin
CPT/HCPCS: 52281; 51610; 74450; 82948; 99285; A9270; C1726; C1769; J1630; J2250; J3010; J7030; J7120

== ENCOUNTER 2022-09-13 15:46 | Outpatient (CLI) | payer BC, SELFPAY ==
[2022-09-13 16:56] LABS: Anion Gap 6 mmol/L (8-16); Blood Urea Nitrogen 25 mg/dL (9-20); Calcium 9.7 mg/dL (8.4-10.2); Carbon Dioxide 31 mmol/L (22-30); Chloride 100 mmol/L (98-107); Estimated Glomerular Filt Rate 38; Glucose 92 mg/dL (65-110); HDL Direct 38 mg/dL; Potassium 4.4 mmol/L (3.4-5.0); Sodium 137 mmol/L (137-145)
[2022-09-13 17:08] LABS: LDL Cholesterol Direct 56 mg/dL
[2022-09-13 17:17] LABS: Vitamin D 25 Hydroxy 19.3 ng/mL
== END 2022-09-13 15:47 | disposition home or self-care (01) ==
LOC: ANHWCLAB 15:47
PROVIDERS: PCP Family Medicine; Visit Provider Internal Medicine Endocrinology, Diabetes & Metabolism
DX: E10.65 Type 1 diabetes mellitus with hyperglycemia (principal); Z71.3 Dietary counseling and surveillance
CPT/HCPCS: 36415; 80048; 82306; 83718; 83721; 84443

== ENCOUNTER 2025-03-01 16:06 | Emergency (ER) | payer OTHER, SELFPAY ==
--- OUTSIDE RECORDS SUMMARY | 2025-03-01 16:09 | XMS_ITS | Clinical Summary ---
Author Organization [facility] Address [address] [address] Care Team Providers Care Bit Grinder Name Role Phone Jamal Palmer MD Primary Care Provider [phone] Source Comments [facility],non-owned Affiliates and Associated Physician Practices is amultiple site organization consisting of ambulatory clinics and hospital sitesin [place], [place], [place] and [place]. This disclosure is being madepursuant to the Care Everywhere program and may not contain all information available regarding this patient. Last updated 18.[facility] Allergies No known active allergies Medications * Be aware that medications may not be up to date on this document. Alwaysverify current medications with the patient. gabapentin (NEURONTIN) 800 MG tablet TK 1 T PO TID 0 8 Active ONETOUCH DELICA LANCETS 33G MISC USE TO TEST TID 3 8 Active insulin syringe-needle (BD ULTRAFINE) 29G X 1/2 0.5 ML syringe USE TO INJECT INSULIN QID 3 8 Active HUMALOG vial 0 8 Active HYDROcodone-ac etaminophen (NORCO) 5-325 MG tablet TK 1 TO 2 TS PO Q 4 H PRN, 10/325mg 0 8 Active insulin glargine (LANTUS) vial Inject subcutaneously at bedtime 40 units at HS Active Active Problems No known active problems Family History Medical History Relation Name Comments CVA Mother Cancer - Other Paternal Grandfather Hypertension Paternal Grandfather Renal Disease Paternal Grandfather Cancer - Other Paternal Grandmother Hypertension Paternal Grandmother Renal Disease Paternal Grandmother Relation Name Status Comments Mother Paternal Grandfather Paternal Grandmother Social History Tobacco Use Types Packs/Day Years Used Date Smoking Tobacco: Never Smokeless Tobacco: Never Alcohol Use Standard Drinks/Week Comments No 0 (1 standard drink = 0.6 oz pur e alcohol) Sex and Gender Information Value Date Recorded Sex Assigned at Not on file Legal Sex Male 11:27 AM CDT Gender Identity Not on file Sexual Orientation Not on file Last Filed Vital Signs Vital Sign Reading Time Taken Comments Blood Pressure 117/81 05/28/2018 3:27 PM [employer]PERVIS[employer]LE [employer] Pulse 93 05/28/2018 3:27 PM [employer] Temperature 36.3 C (97.4 F) 05/28/2018 3:27 PM [employer] Respiratory Rate 18 05/28/2018 3:27 PM [employer] Oxygen Saturation 98% 05/28/2018 3:27 PM [employer] Inhaled Oxygen Concentration - - Weight 79.6 kg (175 lb 6.4 oz) 05/28/2018 3:27 P M [employer] Height 188 cm (6' 2) 05/28/2018 3:27 PM [employer] Body Mass Index 22.52 05/28/2018 3:27 PM [employer] Plan of Treatment Health Maintenance Due Date Last Done Comments HIV SCREENING 2001 HEPATITIS C SCREENING 04/07/2004 DTAP/TDAP/TD VACCINES (1 - Tdap) 2005 HEPATITIS B VACCINE (1 of 3 - 19+ 3-dose series) 2005 HPV VACCINE (1 - 3-dose SCDM series) 2013 COVID-19 VACCINE (1 - 2023- season) 2024 DEPRESSION SCREENING 07/23/2024 INFLUENZA VACCINE (#1) 2025 0, 08/06/2019, 06/09/2018, Additional history exists ZOSTER VACCINE (1 of 2) 2036 HIB VACCINE Aged Out No longer eligi ble based on patient's age to complete this topic MENINGOCOCCAL (Group B) VACCINE SHARED DECISION-MAKING Aged Out No longer eligible based on patient's age to complete this topic MENINGOCOCCAL GROUPS A/C/Y/W VACCINE Aged Out No longer eligible based on patient's age to complete this topic PNEUMOCOCCAL VACCINE Aged Out No long er eligible based on patient's age to complete this topic [place] [address] [address] [address] Care Teams Bit Grinder Relationship Specialty Start Date End Date Jamal Palmer MD [address] [place] [address] [place] [address] [phone] PCP - General Internal Medicine 05/24/18
--- OUTSIDE RECORDS SUMMARY | 2025-03-01 16:09 | XMS_ITS | Encounter Summary ---
Author Organization [facility] Address [facility] [place] [address] Care Team Providers Care Oysterman Name Role Phone Jamal Palmer MD Primary Care Provider [phone] Isael Spear MD Primary Care Provider [phone] Anju Rodriguez Primary Care Provider [phone] Encounter Details Date Type Department Care Team (Late st Contact Info) Description 12/09/2018 CHILD WELFARE MANAGER ONLY [facility] Priority [facility] - [address] [place] [address] Scanned, Documents Social History Tobacco Use Types Packs/Day Years Used Date Smoking Tobacco: Never Smokeless Tobacco: Never Alcohol Use Standard Drinks/Week Comments No 0 (1 standard drink = 0.6 oz pur e alcohol) AUDIT-C Answer Date Recorded Frequency of Alcohol Consumption Never 12/02/2018 Average Number of Drinks Not on file 019 Frequency of Binge Drinking Not on file 11/20 Sex and Gender Information Value Date Recorded Sex Assigned at Not on file Legal Sex Male 9:39 PM CDT Gender Identity Not on file Sexual Orientation Not on file documented as of this encounter Progress Notes * Zscanned, Documents - 12/09/2018 12:00 AM CDT ETIENNE CALIXTO MD: ACCT: [id number] ADMIT/SERVICE DATE: 12/09/18 DISCHARGE DATE: : 1985 PT TYPE: PRE CLI SEX: M ORD SITE: [facility] REPORT OF PATHOLOGICAL EXAMINATION DATE OF SURGERY: 12/09/2018 SURGICAL PATH NO: [id number] DATE OBTAINED: 12/09/2018 DATE RETURNED: CHART DOCUMENT PATHOLOGICAL DIAGNOSIS: I. PUNCH BIOPSY OF ANTERIOR SCALP -EXTENSIVE NECROSIS OF EPIDERMIS WITH CHRONIC INFLAMMATION OF DERMIS AND FAT NECROSIS - CASE SENT TO [facility] ON 12/12/28 FOR EXPERT CONSULTATION, PLEASE SEE ATTACHED REPORT. II. PUNCH BIOPSY OF POSTERIOR SCALP -FIBROSIS WITH NORMAL HAIR AND SEBACEOUS FOLLICLES. SPECIMEN: #1 PUNCH BIOPSY OF ANTERIOR SCALP #2 POSTERIOR SCALP PUNCH BIOPSY GROSS EXAMINATION: THE SPECIMEN IS RECEIVED IN FORMALIN IN TWO PORTIONS. THE FIRST PORTION IS LABELED PUNCH BIOPSY OF ANTERIOR SCALP. IT CONSISTS OF A PUNCH BIOPSY OF SOMEWHAT PIGMENTED HERNANDEZ/MERLOS SKIN THAT MEASURES 0.3 CM IN GREATEST DIMENSION X LESS THAN 0.2 CM IN DEPTH. THE MARGINS ARE INKED AND THE SPECIMEN IS BISECTED AND SUBMITTED ENTIRELY IN A SINGLE CASSETTE DESIGNATED A. THE SECOND PORTION IS LABELED POSTERIOR SCALP PUNCH BIOPSY. IT CONSISTS OF A 0.3 CM PUNCH BIOPSY OF WHITE/MERLOS SKIN THAT MEASURES LESS THAN 0.2 CM IN THICKNESS. HAIR EMERGES FROM THE SURFACE. THE MARGINS ARE INKED AND THE SPECIMEN IS BISECTED AND ENTIRELY SUBMITTED IN B. PG/MKP 12/09/2018 12/10/2018 03:06 P MICROSCOPIC EXAMINATION: BLOCK A (ANTERIOR SCALP) REVEALS SECTIONS OF SKIN. THE EPIDERMIS IS ULCERATED AND SHOWS ACUTE AND CHRONIC INFLAMMATION AND NECROSIS. THE DERMIS SHOWS DENSE ACUTE AND CHRONIC INFLAMMATION LOCATED THROUGHOUT THE ENTIRE DERMIS BUT MORE PRONOUNCED AROUND THE HAIR FOLLICLES WITH EXTENSION OF THE INFLAMMATION INTO THE HAIR FOLLICLES. THE INFLAMMATION CONSISTS OF SEGMENTED NEUTROPHILS, LYMPHOCYTES, EOSINOPHILS, AND PLASMA CELLS. THERE IS A PROLIFERATION OF BENIGN REACTIVE BLOOD VESSELS WITH INFLAMMATION AROUND THEM. ALSO THERE ARE AREAS OF FAT NECROSIS. THIS PATIENT HAS A HISTORY OF LOSING HAIR WITH A SPOT BARE OF THE HAIR BIOPSIED. BLOCK B POSTERIOR SCALP PUNCH BIOPSY REVEALS SECTIONS OF SKIN. THE EPIDERMIS SHOWS HYPERKERATOSIS. THE DERMIS SHOWS FIBROSIS WITH MANY HAIR FOLLICLES. NO SIGNIFICANT INFLAMMATION IS PRESENT. THIS CASE WILL BE REVIEWED IN INTRADEPARTMENTAL CONSULTATION AND IS SENT TO THE [facility] FOR EXPERT OPINION. 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 (TH) 05/18/22 nasal (TH) 05/20/22 scalp (TH) 07/05/22 scalp (JK) 05/19/2022 05/19/2022 COVID-19 Rule Out 07/24/2022 07/24/2022 07/24/2022 1:58 PM FLAVOR MAKER COVID-19 Rule Out 02/28/2024 02/28/2024 02/28/2024 4:59 AM CDT COVID-19 Rule Out 07/23/2024 07/23/2024 07/23/2024 12:32 PM FLAVOR MAKER documented as of this encounter Care Teams Oysterman Relationship Specialty Start Date End Date Jamal Palmer MD [address] [place] [id number] PCP - General INTERNAL MEDICINE 12/02/18 05/16/22 Isael Spear MD [address] [place] [id number] PCP - General FAMILY PRACTICE 05/17/22 04/01/24 Anju Rodriguez FNP [address] [place] [id number] PCP - General Nurse Practitioner Family 04/02/24 documented as of this encounter
--- OUTSIDE RECORDS SUMMARY | 2025-03-01 16:09 | XMS_ITS | Clinical Summary ---
Author Organization [facility] [place] Address [address] [place] [address] Care Team Providers Care Private Investigator Surveillance Name Role Phone Anju RodriguezP Primary Care Provider [phone] Allergies No known active allergies Medications Blood Glucose Monitoring Suppl (ONETOUCH VERIO) w/Device Kit USE DIRECTED TO TEST BLOOD SUGAR 0 8 Active duloxetine 60 MG capsule Take 1 capsule (60 mg total) by mouth daily. 2 9 Active TRUEPLUS PEN NEEDLES 32G X 4 MM Misc U WITH INSULIN PENS QID UTD 1 9 Active ONETOUCH DELICA LANCETS 33G Misc 3 (three) times daily. 3 9 Active ONETOUCH VERIO test strip USE TO TEST TID BEFORE MEALS 3 8 Active Glucagon 3 MG/DOSE Powder 1 spray by Nasal route daily as needed (hypoglycemia ). 4 Active ferrous sulfate, 65 mg elemental, 325 (65 FE) MG tablet Take 1 tablet (325 mg total) by mouth daily with breakfast. Active Continuous Glucose Transmitter (DEXCOM G6 TRANSMITTER) Misc 4 Active Insulin Disposable Pump (OMNIPOD 5 [id number] PODS GEN 5) Misc CHANGE pod every TWO DAYS as directed. 4 Active insulin lispro (HUMALOG) 100 UNIT/ML patient supplied PUMP Inject into the skin continuous. Active cefdinir (OMNICEF) 300 MG Cap capsule Take 1 capsule (300 mg total) by mouth 2 (two) times daily. 10 capsule 5 Active HYDROcodone-acet aminophen (NORCO) 5-325 MG tabletIndication s:Chronic Pain Take 1 tablet by mouth every 6 (six) hours as needed for Pain. Indications: Chronic Pain 30 tablet 5 Active amLODIPine (NORVASC) 5 MG tablet Take 1 tablet (5 mg total) by mouth daily. 30 tablet 5 Active Active Problems Problem Noted Date Diagnosed Date UTI (urinary tract infection) 07/26/2024 DKA (diabetic ketoacidosis) ([facility]) Uncontrolled type 1 diabetes mellitus with hyperglycemia, with long-term current use of insulin ([facility]) 10/28/2022 Cellulitis of face 05/17/2022 Abscess of scalp 05/17/2022 Overview (05/20/2022): Added automatically from request for surgery [id number] Immunizations Immunization Administration Dates Next Due AFLURIA QUAD >36 MONTHS (MULTI-DOSE VIAL) 2019 Afluria 36 MONTHS+ (Prefilled Syringe IIV4) 07/23 Flucelvax 2 YRS+ (Multi-Dose Vial) 06/09/2018 Influenza (Generic) 05/26/2015 Tdap (Boostrix) 05/22/2022 Family History Medical History Relation Comments Hypertension Mother Relation Status Comments Mother Social History Tobacco Use Types Packs/Day Years Used Date Smoking Tobacco: Never Smokeless Tobacco: Never Tobacco Cessation:Counseling Given: No Alcohol Use Standard Drinks/Week Comments No 0 (1 standard drink = 0.6 oz pur e alcohol) B1300 Health Literacy Answer Date Recor ded How often do you need to hav e someone help you when you read instructions, pamphlets, or other written material from your doctor or pharmacy? Never 11/26/2023 [facility] Utilities Answer Date Recorded In the past 12 months has th e [employer], gas, oil, or water [employer] threatened to shut off services in your home? No 07/26/2024 Humiliation, Afraid, Rape, and Kick questionnair e Answer Date Recorded Within the last year, have y ou been afraid of your partner or ex-partner? No 07/26/2024 Within the last year, have y ou been humiliated or emotionally abused in other ways by your partner or ex-partner? No Within the last year, have y ou been kicked, hit, slapped, or otherwise physically hurt by your partner or ex-partner? No 07/26/2024 Within the last year, have y ou been raped or forced to have any kind of sexual activity by your partner or ex-partner? No 07/26/2024 Social Connection and Isolat ion Panel [NHANES] Answer Date Recorded In a typical week, how many times do you talk on the phone with family, friends, or neighbors? Three times a week 11/26/2023 How often do you get togethe r with friends or relatives? Three times a week 11/26/2023 How often do you attend [facility] or [facility] services? More than 4 times per year 11/26/2023 Do you belong to any clubs o r organizations such as adventist groups, unions, fraternal or athletic groups, or school groups? No 11/26/2023 How often do you attend meet ings of the clubs or organizations you belong to? Never 11/26/2023 Are you , , di vorced, , never , or living with a partner? Never 11/26/2023 AUDIT-C Answer Date Recorded Q1: How often do you have a drink containing alcohol? Never 11/26/2023 Q2: How many drinks containi ng alcohol do you have on a typical day when you are drinking? Patient does not drink Q3: How often do you have si x or more drinks on one occasion? Never 11/26/2023 Overall Financial Resource Strain (CARDIA) Answe r Date Recorded How hard is it for you to pa y for the very basics like food, housing, medical care, and heating? Not very hard 07/26/2024 PHQ-2 Answer Date Recorded Patient Health Questionnaire-2 Score 0 07/05/2022 [facility] - Occupational Stress Questionnaire Answer Date Recorded Do you feel stress - tense, restless, nervous, or anxious, or unable to sleep at night because your mind is troubled all the time - these days? Only a little 11/26/2023 Exercise Vital Sign Answer Date Recorde d On average, how many days pe r week do you engage in moderate to strenuous exercise (like a brisk walk)? 0 days 11/26/2023 On average, how many minutes do you engage in exercise at this level? 0 min 11/26/2023 Hunger Vital Sign Answer Date Recorded Within the past 12 months, y ou worried that your food would run out before you got the money to buy more. Never true 07/26/19 25 Within the past 12 months, t he food you bought just didn't last and you didn't have money to get more. Never true 07/26/2024 PRAPARE - Transportation Answer Date Re corded In the past 12 months, has l ack of transportation kept you from medical appointments or from getting medications? No 10/2024 In the past 12 months, has l ack of transportation kept you from meetings, work, or from getting things needed for daily living? No 07/26/2024 Housing Stability Vital Sign Answer Pierre e Recorded In the last 12 months, was t here a time when you were not able to pay the mortgage or rent on time? No 10/28/2022 In the last 12 months, how many places have you lived? 1 10/28/2022 In the last 12 months, was t here a time when you did not have a steady place to sleep or slept in a skilled nursing (including now)? No 10/28/2022 Housing Stability Vital Sign Answer Pierre e Recorded In the last 12 months, was t here a time when you were not able to pay the mortgage or rent on time? No 07/26/2024 In the past 12 months, how m any times have you moved where you were living? 0 07/26/2024 At any time in the past 12 m [facility], were you homeless or living in a skilled nursing (including now)? No 07/26/2024 Sex and Gender Information Value Date Recorded Sex Assigned at Not on file Legal Sex Male 9:39 PM CDT Gender Identity Not on file Sexual Orientation Not on file Last Filed Vital Signs Vital Sign Reading Time Taken Comments Blood Pressure 163/93 07/28/2024 11:09 AM COAT REPAIR INSPECTOR Pulse 83 07/28/2024 11:09 AM COAT REPAIR INSPECTOR Temperature 36.4 C (97.6 F) 07/28/2024 11:09 AM COAT REPAIR INSPECTOR Respiratory Rate 18 07/28/2024 11:0 9 AM COAT REPAIR INSPECTOR Oxygen Saturation 97% 07/28/2024 11: 09 AM COAT REPAIR INSPECTOR Inhaled Oxygen Concentration - - Weight 98.4 kg (216 lb 14.9 oz) 07/28/2024 4:38 AM COAT REPAIR INSPECTOR Height 188 cm (6' 2) 07/26/2024 2:23 PM COAT REPAIR INSPECTOR Body Mass Index 27.85 07/26/2024 2:23 PM COAT REPAIR INSPECTOR Plan of Treatment Health Maintenance Due Date Last Done Comments Kidney Health Evaluation 1986 Annual Physical 1989 Diabetes: Retinopathy Eye Exam 2004 Hepatitis C 2004 Hepatitis B Vaccines (1 of 3 - 19+ 3-dose series) 2005 Pneumococcal Vaccine: Pediatrics (0 to 5 Years) and At-Risk Patients (6 to 49 Years) (1 of 2 - PCV) 2005 HPV Vaccines (1 - 3-dose SCDM series) 2013 COVID-19 Vaccine ( season) 2024 05/16/2021, 09/15/2020, 08/25/2020 Hemoglobin A1C 05/31/2024 02/29/2024, 08/0 02/2024, 08/14/2023, Additional history exists PHQ-2 (Physician [place]) 07/23/2024 Lipid Panel 02/26/2025 02/27/2024 DTaP, Tdap and Td Vaccines (2 - Td or Tdap) 05/22/2032 05/22/2022 Meningococcal B Vaccine Aged Out No l onger eligible based on patient's age to complete this topic Meningococcal Vaccine Aged Out No sallie kirill eligible based on patient's age to complete this topic RSV Immunizations Under 20 Months Aged Out No longer eligible based on patient's age to complete this topic Goals Goal Patient Goal Type Associated Problems Recent Progress Patient-Stated? Author Patient will return to prior living situation and remain independent in ADLs upon discharge from hospital Lifestyle Pauline Sterling, senior policy associate Procedure Name Priority Date/Time Associated Diagnosis Comments HEMOGLOBIN, GLYCOSYLATED Routine 02/29/2024 3:52 AM CDT LIPID PANEL STAT 02/27/2024 5:10 PM CDT from Last 3 Months or Most Recently Relevant to Health Maintenance Results * (ABNORMAL) HEMOGLOBIN, GLYCOSYLATED (02/29/2024 3:52 AM CDT) HGB A1C 10.4(H) <5.7 % 02/29/2024 7:49 AM CDT [facility] Comment: INCREASED RISK OF DIABETES <5.7% NON-DIABETES 5.7-6.4% INCREASED RISK FOR FUTURE DIABETES > OR = 6.5 CONSISTENT WITH DIABETES STANDARDS OF MEDICAL CARE IN DIABETES-2010 DIABETES CARE, 33(SUPP 1): S1-S61,2010 ESTIMATED AVG GLUCOSE 252 mg/dL 02/29/2024 7:49 AM CDT [facility] 02/29/2024 3:52 AM CDT Deja Cifuentes MD LABORATORY Final Result [facility] [id number] [address] [id number], [place] [phone] * LIPID PANEL (02/27/2024 5:10 PM CDT) CHOLESTEROL 121 <200.0 MG/DL 02/27/2024 5:34 PM CDT [facility] TRIGLYCERIDES 74 <150 MG/DL 02/27/2024 5:34 PM CDT [facility] HDL 44 >40.0 MG/DL 02/27/2024 5:34 PM CDT [facility] LDL (CALCULATED) 62 <100 MG/DL 02/27/20 24 5:34 PM CDT [facility] NON HDL CHOLESTEROL 77 <130 MG/DL 02/26 5:34 PM CDT [facility] CHOL/HDL RATIO 2.8 0.0 - 4.5 02/27/2024 5:34 PM CDT [facility] VLDL CALCULATION 15 5 - 55 MG/DL 02/27/2024 5:34 PM CDT [facility] LIPID INTERPRETATION 02/27/2024 5:34 PM CDT [facility] Comment: NIH CONCENSUS REPORT RECOMMENDATIONS: ADULT CHILD LOW RISK: CHOLESTEROL <200 <170 TRIGLYCERIDE <150 --- HDL >=60 --- LDL <100 <110 BORDERLINE: CHOLESTEROL 200-239 170-199 TRIGLYCERIDE 150-199 --- HDL 40-59 --- LDL 100-159 110-129 HIGH RISK: CHOLESTEROL >=240 >=200 TRIGLYCERIDE >=200 --- HDL <40 --- LDL >=160 >=130 02/27/2024 5:10 PM CDT Constantine Lance MD LABORATORY Final Result [facility] [address] [place] [address], from Last 3 Months or Most Recently Relevant to Health Maintenance Additional Health Concerns Infection Onset Date 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 (TH) 05/18/22 nasal (TH) 05/20/22 scalp (TH) 07/05/22 scalp (JK) 05/19/2022 05/19/2022 Insurance Advance Directives Documents on File Type Date Recorded Patient Projects Manager Expl anation Legal Documents 04/22/2020 10:12 AM I-HEAL PHYSICIAN NOTES 03/15/2020 Legal Documents 12/02/2020 2:09 PM [facility] NOTES / WOUNDCARE 08/11/2020 * Full Code (Latest Code Status on File) Date Activated Date Inactivated Comments 07/26/2024 1:14 PM 07/28/2024 4:53 PM * Full Code Date Activated Date Inactivated Comments 02/27/2024 4:31 PM 03/01/2024 2:56 PM * Full Code Date Activated Date Inactivated Comments 10/28/2022 8:58 PM 10/29/2022 3:43 PM * Full Code Date Activated Date Inactivated Comments 05/17/2022 4:29 PM 05/22/2022 4:18 PM Care Teams Private Investigator Surveillance Relationship Specialty Start Date End Date Anju Rodriguez FNP [address] [place] [id number] PCP - General Nurse Practitioner Family 04/02/24
--- OUTSIDE RECORDS SUMMARY | 2025-03-01 16:09 | XMS_ITS | Clinical Summary ---
Author Organization [facility] Address [address] [place] [id number] Care Team Providers Care Sap Business Objects Consultant Name Role Phone Nicky Villavicencio MD Primary Care Provider [phone] Allergies No known active allergies Medications DULoxetine DR (CYMBALTA) 60 mg capsule Take 1 capsule (60 mg total) by mouth daily 2 9 Active Lactobacillus acidophilus (PROBIOTIC ORAL) Take 1 capsule by mouth daily Active acetaminophen (TYLENOL) 500 mg tablet Take 2 tablets (1,000 mg total) by mouth daily Active ketotifen (ZADITOR) 0.025 % ophthalmic solution Administer 1 drop into both eyes daily Active oxymetazoline 0.05 % nasal spray Administer 2 sprays into each nostril 2 (two) times a day as needed for congestion Active diphenhydrAMINE 25 mg capsule Take 2 tablet/capsule (50 mg total) by mouth nightly as needed for allergies or sleep Active insulin lispro (HumaLOG) 200 unit/mL (3 mL) pen for injection Inject 0-0.05 mL (0-10 Units total) under the skin 3 (three) times a day before meals Sliding scale. BS<150 = 0 units BS>150 = 5 units +1 unit for every 25 of BS above 150 up to a maximum dose of 20 units. Active ibuprofen 200 mg tab/cap Take 3 tablet/capsule (600 mg total) by mouth every 8 (eight) hours as needed for pain Active glucagon (BAQSIMI) 3 mg/actuation spray,non-aeroso l Administer 1 spray into one nostril as needed (hypoglycemia) 1 each 2 4 Active atorvastatin (LIPITOR) 20 mg tablet Take 1 tablet (20 mg total) by mouth nightly 30 tablet 11 4 Active insulin glargine 100 unit/mL (3 mL) pen for injection Inject 50 Units under the skin nightly 20 mL 7 4 Active insulin lispro (HumaLOG, ADMELOG) 100 unit/mL pen for injection Inject 12 Units under the skin 3 (three) times a day with meals 15 mL 7 4 Active Active Problems Problem Noted Date Diagnosed Date DKA, type 1, not at goal 08/14/2023 Urethral stricture 09/25/2022 Overview (09/25/2022): Added automatically from request for surgery [id number] Surgical History Surgery Date Site/Laterality Comments WOUND DEBRIDEMENT 03/23/2018 - 04/21/2018 SURGICAL DEBRIDEMENT OF TAILBONE WOUND Medical History Medical History Date Comments Weight loss Constipation Erectile dysfunction Diabetes mellitus (HCC) Type 1 Neurogenic bladder Visual impairment Peripheral neuropathy Diabetes mellitus type I (HCC) Family History Medical History Relation Name Comments Hypertension Mother Relation Name Status Comments Mother Social History Tobacco Use Types Packs/Day Years Used Date Smoking Tobacco: Never Smokeless Tobacco: Never Alcohol Use Standard Drinks/Week Comments Not Currently 0 (1 standard drink = 0.6 oz pur e alcohol) NO [facility] Utilities Answer Date Recorded In the past 12 months has [employer], gas, oil, or water [employer] threatened to shut off services in your home? No 08/15/2023 Social Connection and Isolation Panel Answer Date Recorded In a typical week, how many times do you talk on the phone with family, friends, or neighbors? Three times a week 08/15/2023 How often do you get togethe r with friends or relatives? Three times a week 08/15/2023 How often do you attend chur ch or latter-day services? Never 08/15/2023 Do you belong to any clubs o r organizations such as temple groups, unions, fraternal or athletic groups, or school groups? No 08/15/2023 How often do you attend meet ings of the clubs or organizations you belong to? Never 08/15/2023 Are you , , di vorced, , never , or living with a partner? Never 08/15/2023 AUDIT-C Answer Date Recorded Q1: How often do you have a drink containing alcohol? Never 10/11/2022 Q2: How many drinks containi ng alcohol do you have on a typical day when you are drinking? Patient does not drink Frequency of Binge Drinking Not on file 09/21 Overall Financial Resource Strain (CARDIA) Answe r Date Recorded How hard is it for you to pa y for the very basics like food, housing, medical care, and heating? Not hard at all 08/15/2023 Hunger Vital Sign Answer Date Recorded Within the past 12 months, y ou worried that your food would run out before you got the money to buy more. Never true 08/15/19 24 Within the past 12 months, t he food you bought just didn't last and you didn't have money to get more. Never true 08/15/2023 PRAPARE - Transportation Answer Date Re corded In the past 12 months, has l ack of transportation kept you from medical appointments or from getting medications? No 07/24 In the past 12 months, has l ack of transportation kept you from meetings, work, or from getting things needed for daily living? No 08/15/2023 Housing Stability Vital Sign Answer Pierre e Recorded In the last 12 months, was t here a time when you were not able to pay the mortgage or rent on time? No 08/15/2023 In the last 12 months, how many places have you lived? 1 08/15/2023 In the last 12 months, was t here a time when you did not have a steady place to sleep or slept in a group home (including now)? No 08/15/2023 Personal Safety Answer Date Recorded Have you ever been in or are you currently in a harmful physical or emotional relationship or is someone making you feel afraid or unsafe? Denies 08/14/2023 Sex and Gender Information Value Date Recorded Sex Assigned at Not on file Legal Sex Male 11:44 AM JUNIOR MANUFACTURING ENGINEER Gender Identity Not on file Sexual Orientation Not on file Obstetrics History Last Filed Vital Signs Vital Sign Reading Time Taken Comments Blood Pressure 124/88 08/16/2023 3:28 PM JUNIOR MANUFACTURING ENGINEER Pulse 100 08/16/2023 11:20 AM JUNIOR MANUFACTURING ENGINEER Temperature 37.6 C (99.7 F) 08/16/2023 11:20 AM JUNIOR MANUFACTURING ENGINEER Respiratory Rate 18 08/16/2023 11:20 AM JUNIOR MANUFACTURING ENGINEER Oxygen Saturation 98% 08/16/2023 11:20 AM JUNIOR MANUFACTURING ENGINEER Inhaled Oxygen Concentration - - Weight 91.7 kg (202 lb 2.6 oz) 08/14/2023 1:55 A M JUNIOR MANUFACTURING ENGINEER Height 188 cm (6' 2) 08/14/2023 1:55 AM JUNIOR MANUFACTURING ENGINEER Body Mass Index 25.96 08/14/2023 1:55 AM JUNIOR MANUFACTURING ENGINEER Plan of Treatment Health Maintenance Due Date Last Done Comments Albumin Creatinine Ratio, Urine 1986 Depression Screening 1986 Foot Exam 1986 Hepatitis C Screening 1986 TSH Level 1986 Dilated Eye Exam 1996 Varicella Vaccines (1 of 2 - 13+ 2-dose series) 1999 Hepatitis B Screening 2004 Regular Well Visit/Exam 18-64 2004 Pneumococcal vaccine <65 (1 of 2 - PCV) 2005 HPV Vaccines (1 - 3-dose SCD M series) 2013 Hemoglobin A1C 02/12/2024 08/14/2023 Covid-19 Vaccine (4 - 2023-2 5 season) 2024 05/16/2021, 09/15/2020, 08/25/2020 Lipid Panel 08/16/2024 08/16/2023 eGFR 08/16/2024 08/16/2023, 07/24, 08/14/2023, Additional history exists Influenza Vaccine (#1) 2025 0, 08/06/2019, 08/06/2019, Additional history exists DTaP/Tdap/Td Vaccine (2 - Td or Tdap) 05/22/2032 05/22/2022 Procedures Procedure Name Priority Date/Time Associated Diagnosis Comments EGFR Routine 08/16/2023 3:19 AM JUNIOR MANUFACTURING ENGINEER LIPID PANEL Routine 08/16/2023 3:19 AM JUNIOR MANUFACTURING ENGINEER HEMOGLOBIN A1C Routine 08/14/2023 2:53 AM JUNIOR MANUFACTURING ENGINEER from Last 3 Months or Most Recently Relevant to Health Maintenance Results * eGFR (08/16/2023 3:19 AM JUNIOR MANUFACTURING ENGINEER) eGFR 85 mL/min/1. 73 m2 [facility] Comment: Interpretive Data Reference Interval Normal >/= 90 mL/min/1.73m2 Mildly decreased* 60 - 89 mL/min/1.73m2 Mildly to moderately decreased 45 - 59 mL/min/1.73m2 Moderately to severely decreased 30 - 44 mL/min/1.73m2 Severely decreased 15 - 29 mL/min/1.73m2 Kidney Failure < 15 mL/min/1.73m2 *Relative to young adult level Estimated glomerular filtration rate is determined by the 2020 CKD-EPI equation recommended by the National Kidney Foundation (A Unifying Approach to GFR Estimation: Recommendations of the NKF-ASK Task Force on Reassessing the Inclusion of Race in Diagnosing Kidney Disease, JASN 2020). The CKD-EPI equation should not be used for patients with unstable renal function and has not been validated in children and those over 70. Current interpretive data was last reviewed 2021. Blood 08/16/2023 3:19 AM JUNIOR MANUFACTURING ENGINEER 08/16/2023 3:32 AM JUNIOR MANUFACTURING ENGINEER us Franky Ayoub MD LAB BLOOD ORDERABLES Final R esult [facility] [address] [place] [address] * (ABNORMAL) Lipid panel (08/16/2023 3:19 AM JUNIOR MANUFACTURING ENGINEER) Cholesterol 139 30 - 199 mg/dL [facility] Comment: Interpretive Data Ages < or = 19 years Acceptable: <170 mg/dL Borderline high: 170-199 mg/dL High: >or= 200 mg/dL Ages > or = 20 years Desirable: <200 mg/dL Borderline high: 200-239 mg/dL High: >or= 240 mg/dL Literature References: 1. Expert Panel on Integrated Guidelines for Cardiovascular Health and Risk Reduction in Children and Adolescents. Pediatrics 2011;128:S213 2. NCEP Expert Panel. Circulation 2004;110:227 Current Interpretive Data was last revised on 2018. Triglycerides 196(H) <=149 mg/dL [facility] Comment: Interpretive Data Ages < or = 9 years Acceptable: <75 mg/dL Borderline high: 75-99 mg/dL High: >or= 100 mg/dL Ages 10 to 20 years Acceptable: <90 mg/dL Borderline high: 90-129 mg/dL High: >or= 130 mg/dL Ages > or = 20 years Desirable: <150 mg/dL Borderline high: 150-199 mg/dL High: 200-499 mg/dL Very high: >or= 499 mg/dL Literature References: 1. Expert Panel on Integrated Guidelines for Cardiovascular Health and Risk Reduction in Children and Adolescents. Pediatrics 2011;128:S213 2. NCEP Expert Panel. Circulation 2003;110:227 Current Interpretive Data was last revised on 2018. HDL 36(L) >=40 mg/dL [facility] Comment: Interpretive Data Ages < or = 19 years Acceptable: >45 mg/dL Borderline low: 40-45 mg/dL Low: <40 mg/dL Ages > or = 20 years Desirable: >or= 60 mg/dL Low: <40 mg/dL Literature References: 1. Expert Panel on Integrated Guidelines for Cardiovascular Health and Risk Reduction in Children and Adolescents. Pediatrics 2011;128:S213 2. NCEP Expert Panel. Circulation 2004;110:227 Current Interpretive Data was last revised on 2018. LDL, calculated 64 <=129 mg/dL [facility] Comment: Interpretive Data Ages < or = 19 years Acceptable: <110 mg/dL Borderline high: 110-129 mg/dL High: >or= 130 mg/dL Ages > or = 20 years Optimal: <100 mg/dL Near optimal: 100-129 mg/dL Borderline high: 130-159 mg/dL High: >160 mg/dL Literature References: 1. Expert Panel on Integrated Guidelines for Cardiovascular Health and Risk Reduction in Children and Adolescents. Pediatrics 2011;128:S213 2. NCEP Expert Panel. Circulation 2003;110:227 Current Interpretive Data was last revised on 2018. Non-HDL Cholesterol 103 mg/dL [facility] Comment: Interpretive Data Ages < or = 19 years Acceptable: <120 mg/dL Borderline high: 120-144 mg/dL High: >145 mg/dL Ages > or = 20 years When triglycerides are >200 mg/dL, Non-HDL cholesterol is a secondary target of therapy with treatment goals that are 30 mg/dL greater than the LDL cholesterol target. Literature References: 1. Expert Panel on Integrated Guidelines for Cardiovascular Health and Risk Reduction in Children and Adolescents. Pediatrics 2011;128:S213 2. NCEP Expert Panel. Circulation 2004;110:227 Current Interpretive Data was last revised on 2018. Chol/HDL ratio 4 [facility] Blood 08/16/2023 3:19 AM JUNIOR MANUFACTURING ENGINEER 08/16/2023 3:32 AM JUNIOR MANUFACTURING ENGINEER Tereso Kerr MD LAB BLOOD ORDERABLES Final Result Performing Organization Address [facility] de Phone Number [facility] [address] [place] [address] * (ABNORMAL) Hemoglobin A1c (08/14/2023 2:53 AM JUNIOR MANUFACTURING ENGINEER) Pathologist [facility] Hgb A1C 10.7(H) 4.0 - 5.6 % [facility] Estimated Average Glucose 260 mg/dL [facility] Comment: The ADA recommends reporting an estimated Average Glucose (eAG) with all Hemoglobin A1c results using the equation derived from a study of 507 normal and diabetic adults. Minority populations were underrepresented and children were not included. (Diabetes Care 31:6621-1233, 2008). The eAG is not equivalent to a fasting glucose. Blood 08/14/2023 2:53 AM JUNIOR MANUFACTURING ENGINEER 08/14/2023 2:59 AM JUNIOR MANUFACTURING ENGINEER us Jonah Nina Jr., MD LAB BLOOD ORDERABLES Final Result Performing Organization Address [facility] de Phone Number [facility] [address] [place] [address] [place] [address] from Last 3 Months or Most Recently Relevant to Health Maintenance Advance Directives For more information, please contact: [phone] * Full Code (Latest Code Status on File) Date Activated Date Inactivated Comments 08/14/2023 1:53 AM 08/16/2023 7:45 PM Care Teams Sap Business Objects Consultant Relationship Specialty Start Date End Date Nicky Villavicencio MD [address] [place] [id number] PCP - General Internal Medicine 08/16/23
[2025-03-01 16:33] VITALS: BP 104/75; PULSE 113; RESP 20; TEMP 36.1; O2SAT 99
--- OUTSIDE RECORDS SUMMARY | 2025-03-01 16:56 | XMS_ITS | Clinical Summary ---
Author Organization [facility] Address [address] [place] [address] Care Team Providers Care Model And Mold Maker Name Role Phone Anju RodriguezP Primary Care Provider [phone] Allergies No known active allergies Medications Blood [...] 4 Active Insulin Disposable Pump (OMNIPOD 5 [id number] PODS GEN 5) Misc CHANGE pod every [...] (urinary tract infection) 07/26/2024 DKA (diabetic ketoacidosis) ([facility]) Uncontrolled type 1 diabetes mellitus with hyperglycemia, with long-term current use of insulin ([facility]) 10/28/2022 Cellulitis of face 05/17/2022 Abscess of scalp 05/17/2022 Overview (05/20/2022): Added automatically from request for surgery [id number] Immunizations Immunization Administration Dates Next Due AFLURIA [...] from your doctor or pharmacy? Never 11/26/2023 [facility] Utilities Answer Date Recorded In the past 12 months has th e [employer], gas, oil, or water [employer] threatened to shut off services in your [...] How often do you attend [facility] or jew services? More than 4 times per year 11/26/2023 Do you belong to any clubs o r organizations such as gnosticism groups, unions, fraternal or athletic groups, or [...] Recorded Patient Health Questionnaire-2 Score 0 07/05/2022 [facility] [place] of Occupat ional Health - Occupational Stress [...] place to sleep or slept in a [place] health care facility (including now)? No 10/28/2022 Housing Stability Vital Sign Answer Pierre e Recorded In the last 12 months, was t here a time when you were not able to pay the mortgage or rent on time? No 07/26/2024 In the past 12 months, how m any times have you moved where you were living? 0 07/26/2024 At any time in the past [address] [facility], were you homeless or living in a [place] health care facility (including now)? No 07/26/2024 Sex and Gender Information Value Date Recorded Sex Assigned at Not on file Legal Sex Male 9:39 PM CDT Gender Identity Not on file Sexual Orientation Not on file Last Filed Vital Signs Vital Sign Reading Time Taken Comments Blood Pressure 163/93 07/28/2024 11:09 AM GERIATRIC NURSE Pulse 83 07/28/2024 11:09 AM GERIATRIC NURSE Temperature 36.4 C (97.6 F) 07/28/2024 11:09 AM GERIATRIC NURSE Respiratory Rate 18 07/28/2024 11:0 9 AM GERIATRIC NURSE Oxygen Saturation 97% 07/28/2024 11: 09 AM GERIATRIC NURSE Inhaled Oxygen Concentration - - Weight 98.4 kg (216 lb 14.9 oz) 07/28/2024 4:38 AM GERIATRIC NURSE Height 188 cm (6' 2) 07/26/2024 2:23 PM GERIATRIC NURSE Body Mass Index 27.85 07/26/2024 2:23 PM GERIATRIC NURSE Plan of Treatment Health Maintenance Due Date [...] 02/2024, 08/14/2023, Additional history exists PHQ-2 (Physician [place]) 07/23/2024 Lipid Panel 02/26/2025 02/27/2024 DTaP, Tdap [...] upon discharge from hospital Lifestyle Pauline Sterling, apprentice painter neckties Procedure Name Priority Date/Time Associated Diagnosis Comments [...] Final Result [facility] [address] [place] [id number], [place] [phone] * LIPID PANEL (02/27/2024 5:10 PM CDT) [...] Final Result [facility] [address] [place] [address], from Last 3 Months or Most Recently Relevant to Health Maintenance Additional Health Concerns Infection Onset Date 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
--- OUTSIDE RECORDS SUMMARY | 2025-03-01 16:56 | XMS_ITS | Clinical Summary ---
Author Organization [facility] Address [address] [place] [address] Care Team Providers Care Scabbler Name Role Phone Jamal [place] MD Primary Care Provider [phone] Source Comments [facility],non-owned Affiliates and Associated Physician Practices is amultiple site organization consisting of ambulatory clinics and hospital sitesin [place], [place]. This disclosure is being madepursuant to the Care Everywhere program and may not contain all information available regarding this patient. Last updated 18.[facility] Allergies No known active allergies Medications * [...] Comments Blood Pressure 117/81 05/28/2018 3:27 PM JOURNEYMAN POWERHOUSE OPERATOR Pulse 93 05/28/2018 3:27 PM JOURNEYMAN POWERHOUSE OPERATOR Temperature 36.3 C (97.4 F) 05/28/2018 3:27 PM JOURNEYMAN POWERHOUSE OPERATOR Respiratory Rate 18 05/28/2018 3:27 PM JOURNEYMAN POWERHOUSE OPERATOR Oxygen Saturation 98% 05/28/2018 3:27 PM JOURNEYMAN POWERHOUSE OPERATOR Inhaled Oxygen Concentration - - Weight 79.6 kg (175 lb 6.4 oz) 05/28/2018 3:27 P M JOURNEYMAN POWERHOUSE OPERATOR Height 188 cm (6' 2) 05/28/2018 3:27 PM JOURNEYMAN POWERHOUSE OPERATOR Body Mass Index 22.52 05/28/2018 3:27 PM JOURNEYMAN POWERHOUSE OPERATOR Plan of Treatment Health Maintenance Due Date [...] patient's age to complete this topic [place] [address] [place] [address] Care Teams Scabbler Relationship Specialty Start Date End Date Jamal Palmer MD [address] [place] [address] [place] [address] [phone] PCP - General Internal Medicine 05/24/18
--- OUTSIDE RECORDS SUMMARY | 2025-03-01 16:57 | XMS_ITS | Clinical Summary ---
Author Organization [facility] Address [address] [place] [id number] Care Team Providers Care Research And Development Technician Name Role Phone Nicky Villavicencio MD Primary Care Provider [phone] Allergies No known active allergies Medications DULoxetine [...] (09/25/2022): Added automatically from request for surgery [id number] Surgical History Surgery Date Site/Laterality Comments WOUND [...] = 0.6 oz pur e alcohol) NO [facility] Utilities Answer Date Recorded In the past 12 months has [employer], gas, oil, or water [employer] threatened to shut off services in your [...] often do you attend chur ch or sabianism services? Never 08/15/2023 Do you belong to any clubs o r organizations such as sikhism groups, unions, fraternal or athletic groups, or [...] place to sleep or slept in a [facility] (including now)? No 08/15/2023 Personal Safety Answer Date Recorded Have you ever been in or are you currently in a harmful physical or emotional relationship or is someone making you feel afraid or unsafe? Denies 08/14/2023 Sex and Gender Information Value Date Recorded Sex Assigned at Not on file Legal Sex Male 11:44 AM STRATEGIC PROCUREMENT MANAGER Gender Identity Not on file Sexual Orientation Not on file Obstetrics History Last Filed Vital Signs Vital Sign Reading Time Taken Comments Blood Pressure 124/88 08/16/2023 3:28 PM STRATEGIC PROCUREMENT MANAGER Pulse 100 08/16/2023 11:20 AM STRATEGIC PROCUREMENT MANAGER Temperature 37.6 C (99.7 F) 08/16/2023 11:20 AM STRATEGIC PROCUREMENT MANAGER Respiratory Rate 18 08/16/2023 11:20 AM STRATEGIC PROCUREMENT MANAGER Oxygen Saturation 98% 08/16/2023 11:20 AM STRATEGIC PROCUREMENT MANAGER Inhaled Oxygen Concentration - - Weight 91.7 kg (202 lb 2.6 oz) 08/14/2023 1:55 A M STRATEGIC PROCUREMENT MANAGER Height 188 cm (6' 2) 08/14/2023 1:55 AM STRATEGIC PROCUREMENT MANAGER Body Mass Index 25.96 08/14/2023 1:55 AM STRATEGIC PROCUREMENT MANAGER Plan of Treatment Health Maintenance Due Date [...] Diagnosis Comments EGFR Routine 08/16/2023 3:19 AM STRATEGIC PROCUREMENT MANAGER LIPID PANEL Routine 08/16/2023 3:19 AM STRATEGIC PROCUREMENT MANAGER HEMOGLOBIN A1C Routine 08/14/2023 2:53 AM STRATEGIC PROCUREMENT MANAGER from Last 3 Months or Most Recently Relevant to Health Maintenance Results * eGFR (08/16/2023 3:19 AM STRATEGIC PROCUREMENT MANAGER) eGFR 85 mL/min/1. 73 m2 [facility] [...] last reviewed 2021. Blood 08/16/2023 3:19 AM STRATEGIC PROCUREMENT MANAGER 08/16/2023 3:32 AM STRATEGIC PROCUREMENT MANAGER us Franky Ayoub MD LAB BLOOD ORDERABLES Final R esult [facility] [address] [facility] [place] [address] * (ABNORMAL) Lipid panel (08/16/2023 3:19 AM STRATEGIC PROCUREMENT MANAGER) Cholesterol 139 30 - 199 mg/dL [facility] [...] last revised on 2018. Chol/HDL ratio 4 [facility] Blood 08/16/2023 3:19 AM STRATEGIC PROCUREMENT MANAGER 08/16/2023 3:32 AM STRATEGIC PROCUREMENT MANAGER Tereso Kerr MD LAB BLOOD ORDERABLES Final Result Performing Organization Address [facility] de Phone Number [facility] [address] [facility] [email or web address] [address] * (ABNORMAL) Hemoglobin A1c (08/14/2023 2:53 AM STRATEGIC PROCUREMENT MANAGER) Pathologist [facility] Hgb A1C 10.7(H) 4.0 - 5.6 % [facility] Estimated Average Glucose 260 mg/dL [facility] Comment: The ADA recommends reporting an estimated Average Glucose (eAG) with all Hemoglobin A1c results using the equation derived from a study of 507 normal and diabetic adults. Minority populations were underrepresented and children were not included. (Diabetes Care 31:2617-2078, 2008). The eAG is not equivalent to a fasting glucose. Blood 08/14/2023 2:53 AM STRATEGIC PROCUREMENT MANAGER 08/14/2023 2:59 AM STRATEGIC PROCUREMENT MANAGER us Jonah Nina Jr., MD LAB BLOOD ORDERABLES Final Result Performing Organization Address [facility] de Phone Number [facility] [address] [place] [address] [email or web address] [address] from Last 3 Months or Most Recently Relevant to Health Maintenance Advance Directives For more information, please contact: [phone] * Full Code (Latest Code Status on File) Date Activated Date Inactivated Comments 08/14/2023 1:53 AM 08/16/2023 7:45 PM Care Teams Research And Development Technician Relationship Specialty Start Date End Date Nicky Villavicencio MD [address] [place] [id number] PCP - General Internal Medicine 08/16/23
--- OUTSIDE RECORDS SUMMARY | 2025-03-01 16:57 | XMS_ITS | Encounter Summary ---
Author Organization [facility] Address [facility] [place] [address] Care Team Providers Care Project Production Engineer Name Role Phone Jamal Palmer MD Primary Care Provider [phone] Isael Spear MD Primary Care Provider [phone] Anju Rodriguez Primary Care Provider [phone] Encounter Details Date Type Department Care Team (Late st Contact Info) Description 12/09/2018 [facility] Priority Care - [address] [place] [address] Scanned, Documents Social History Tobacco [...] 12:00 AM CDT ETIENNE CALIXTO MD: ACCT: [id number] ADMIT/SERVICE DATE: 12/09/18 DISCHARGE DATE: : 1986 PT TYPE: PRE CLI SEX: M ORD SITE: [facility] REPORT OF PATHOLOGICAL EXAMINATION DATE OF SURGERY: 12/09/2018 SURGICAL PATH NO: [id number] DATE OBTAINED: 12/09/2018 DATE RETURNED: CHART DOCUMENT PATHOLOGICAL DIAGNOSIS: I. PUNCH BIOPSY OF ANTERIOR SCALP -EXTENSIVE NECROSIS OF EPIDERMIS WITH CHRONIC INFLAMMATION OF DERMIS AND FAT NECROSIS - CASE SENT TO [facility] ON 12/12/28 FOR EXPERT CONSULTATION, PLEASE SEE [...] INTRADEPARTMENTAL CONSULTATION AND IS SENT TO THE [facility] FOR EXPERT OPINION. 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/17/22 left eye (TH) 05/18/22 nasal (TH) 05/20/22 scalp (TH) 07/05/22 scalp (JK) 05/19/2022 05/19/2022 COVID-19 Rule Out 07/24/2022 07/24/2022 07/24/2022 1:58 PM TRAFFIC OPERATIONS MANAGER COVID-19 Rule Out 02/28/2024 02/28/2024 02/28/2024 4:59 AM CDT COVID-19 Rule Out 07/23/2024 07/23/2024 07/23/2024 12:32 PM TRAFFIC OPERATIONS MANAGER documented as of this encounter Care Teams Project Production Engineer Relationship Specialty Start Date End Date Jamal Palmer MD [address] [place] [id number] PCP - General INTERNAL MEDICINE 12/02/18 05/16/22 Isael Spear MD [address] [place] [id number] PCP - General FAMILY PRACTICE 05/17/22 04/01/24 Anju Rodriguez FNP [address] [place] [id number] PCP - General Nurse Practitioner Family 04/02/24 documented as of this encounter
[2025-03-01] MEDS: SODIUM CHLORIDE 0.9% IV 1,000 ML 999 ML IV CONT (17:12)
[2025-03-01] MEDS: ONDANSETRON INJ 4 MG/2 ML VIAL IV PUSH (17:12)
[2025-03-01] MEDS: MORPHINE SULFATE (*CRX) 4 MG/ML INJ IV PUSH (17:13)
--- NOTE | 2025-03-01 17:15 | ED.GENADULT ---
HPI - General Adult General Chief complaint: Nausea/Vomiting/Diarrhea Stated complaint: n/v, ill feeling Time Seen by Provider: 03/01/25 16:44 History of Present Illness HPI narrative: Patient is a 39-year-old male who presents ER with the general feeling of being unwell. Reports body aches and feels like he may have infection. No runny nose or sore throat or productive cough. He has some pain in left flank that he reports is chronic in it flares. Known chronic kidney disease from diabetes complications. Reports normal urine output heard. No chest pain or chest pressure. No abdominal pain. Related Data Home Medications ?Medication ?Instructions ?Recorded ?Confirmed ?Last Taken ?Type diphenhydramine HCl 25 mg capsule 25 mg PO .nightly PRN 08/20/23 01/13/25 Unknown History (Benadryl) Allergies Allergy/AdvReac Type Severity Reaction Status Date / Time No Known Allergies Allergy Verified 03/01/25 16:40 Review of Systems Review of Systems: All systems reviewed & are unremarkable except as noted in HPI and below Constitutional: Constitutional: Reports no additional constitutional complaints ENT: Reports system reviewed and no additional complaints, except as documented Cardiovascular: Cardiovascular: Reports no additional cardiovascular complaints Respiratory: Respiratory: Reports no additional respiratory complaints Gastrointestinal: Gastrointestinal: Reports no additional gastrointestinal complaints [facility] Past Medical History Medical History Diabetic retinopathy Type 1 diabetes mellitus with unspecified diabetic retinopathy without macular edema Neurogenic bladder secondary to DM1 Chronic kidney disease Vitamin D deficiency Anemia Cellulitis Hypertension Secondary male hypogonadism Erectile dysfunction Body mass index (BMI) 21 to less than 23 (06/04/18) Type 1 diabetes mellitus with hyperglycemia Right foot ulcer Diabetic neuropathy CHAZ (acute kidney injury) DKA (diabetic ketoacidoses) Jul 2023 Alopecia areata Surgical History Surgical History Cystadenoma (09/2022) Previous back surgery (04/09/18) tailbone infection, and removal of part of the tailbone Family History Family History Mother Diabetes mellitus Hypertension Father Depression Other Cerebrovascular accident Family history of hearing loss Social History Social History Social History: 10/27/24 very confident with medical forms Smoking status: Never smoker Alcohol intake: never Substance use: never Substance use type: does not use Do You Feel Safe in your Home?: Yes Lack of Transportation: No Lack of Food: Never True Current Housing: I Have Housing Concerned About Future Housing: No Difficulty Paying Gas/Electric Bills: No Difficulty Paying for Meds: YES Currently Unemployed: YES Education: High School Diploma/GED Difficulty w/ Childcare or Family Care: No Living arrangements: with family Occupation/Education: occupation 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 HEAD: Normocephalic, atraumatic. ENT: Mucous membranes moist. CHEST: Clear to auscultation. No respiratory distress. HEART: Regular rate and rhythm. Normal peripheral pulses. ABDOMEN: Soft, nontender, nondistended. Left CVA tenderness EXTREMITIES: Normal range of motion. No edema. SKIN: Warm, dry, no rash. NEURO: Alert and oriented x3. PSYCH: Normal mood and affect. Course Course Emergency Course: Labs normal, morphine for pain, appropriate for d/c home. Vital Signs Vital signs: Vital Signs Temperature 97.0 F L 03/01/25 16:33 Pulse Rate 113 H 03/01/25 16:33 Respiratory Rate 20 03/01/25 16:33 Blood Pressure 104/75 03/01/25 16:33 Pulse Oximetry 99 03/01/25 16:33 Oxygen Delivery Room Air 03/01/25 16:33 Temperature 97.0 F L 03/01/25 16:33 Pulse Rate 113 H 03/01/25 16:33 Respiratory Rate 20 03/01/25 16:33 Blood Pressure 104/75 03/01/25 16:33 Pulse Oximetry 99 03/01/25 16:33 Oxygen Delivery Room Air 03/01/25 16:33 Medical Decision Making Vital Signs Vital Signs: Vital Signs Temperature 97.0 F L 03/01/25 16:33 Pulse Rate 113 H 03/01/25 16:33 Respiratory Rate 20 03/01/25 16:33 Blood Pressure 104/75 03/01/25 16:33 Pulse Oximetry 99 03/01/25 16:33 Oxygen Delivery Room Air 03/01/25 16:33 Temperature 97.0 F L 03/01/25 16:33 Pulse Rate 113 H 03/01/25 16:33 Respiratory Rate 20 03/01/25 16:33 Blood Pressure 104/75 03/01/25 16:33 Pulse Oximetry 99 03/01/25 16:33 Oxygen Delivery Room Air 03/01/25 16:33 Lab Data 03/01/25 17:10 03/01/25 17:10 Labs: Lab Results 03/01/25 03/01/25 Range/Units 17:05 17:10 WBC 8.1 (4.5-10.0) K/mm3 RBC 4.57 L (4.6-6.20) M/mm3 Hgb 13.4 L (14.0-18.0) g/dL Hct 41.2 L (42.0-52.0) % MCV 90.2 (80-100) fl MCH 29.3 (26-34) pg MCHC 32.5 (32-36) g/dl RDW 13.3 (11.5-14.5) % Plt Count 240 (150-375) k/mm3 MPV 9.3 (7.4-10.4) fl Immature Gran % (Auto) 0.1 (0-0.5) % Neut % (Auto) 72.5 (45.5-73.1) % Lymph % (Auto) 16.5 L (18.3-44.2) % [place] % (Auto) 6.3 (2.6-8.5) % Eos % (Auto) 3.2 (0-4.4) % Baso % (Auto) 1.4 H (0.2-1.2) % Lymph # (Auto) 1.34 (0.9-3.2) K/mm3 [place] # (Auto) 0.5 (0.1-0.6) K/mm3 Eos # (Auto) 0.3 (0-0.3) K/mm3 Baso # (Auto) 0.1 (0.0-0.1) K/mm3 Abs Immat Gran (auto) 0.01 (0.00-0.031) K/mm3 Absolute Neuts (auto) 5.9 (1.3-6.7) K/mm3 Absolute Nucleated RBC 0.000 (0.0-0.012) K/mm3 Nucleated RBC % 0.0 (0.0-0.2) % Sodium 139 (137-145) mmol/L Potassium 5.2 H (3.4-5.0) mmol/L Chloride 103 (98-107) mmol/L Carbon Dioxide 30 (22-30) mmol/L Anion Gap 6 (4-12) mmol/L BUN 29 H (9-20) mg/dL Creatinine 1.42 H (0.7-1.3) mg/dL Estim Creat Clear Calc 74 ml/min Estimated GFR 56 L (59 - ) Glucose 119 H (65-110) mg/dL Calcium 10.0 (8.4-10.2) mg/dL Total Bilirubin 1.1 (0.2-1.3) mg/dL AST 37 (17-59) U/L ALT 30 (6-50) U/L Alkaline Phosphatase 67 (38-126) U/L Total Protein 7.2 (6.3-8.2) g/dL Albumin 4.1 (3.5-5.1) g/dL Lipase 17 L (23-300) U/L Urine Color Yellow (Yellow) Urine Appearance Clear (Clear) Urine pH 5.0 (5.0-9.0) Ur Specific [place] 1.019 (1.001-1.035) Urine Protein 3+ H (Negative) mg/dL Urine Glucose (UA) Negative (Negative) mg/dL Urine Ketones Trace H (Negative) mg/dL Ur Blood (Man) Trace (Negative) Urine Nitrate Negative (Negative) Urine Bilirubin Negative (Negative) Urine Urobilinogen 0.2 (<2.0) mg/dL Leukocyte Esterase Rfl Negative (Negative) DAMARIS/UL Urine RBC 0-2 (0-2) /hpf Urine WBC 0-5 (0-3) /hpf Ur Squamous Epith Cells None seen (Few) /hpf Urine Bacteria None seen /hpf Urine Casts 3-5 Influenza A (RT-PCR) Negative (Negative) Influenza B (RT-PCR) Negative (Negative) RSV (RT-PCR) Negative (Negative) SARS-CoV-2 RNA (RT-PCR) Negative (Negative) Discharge Plan Discharge Clinical Impression: Back pain, Fatigue Patient Disposition: Home Condition: Stable Instructions: Flank Pain (ED), Fatigue (ED) Additional Instructions: Please return to the emergency department if you develop severe pain that is not controlled by pain medications or if you are unable to walk because of pain or weakness. Return to the emergency department immediately if you develop fevers, loss of bowel or bladder control (dribbling of urine or having accidents you wouldn't normally have), inability to urinate, numbness of your genital or anal area, or weakness/numbness of your legs or arms as these could all be signs of a serious medical emergency. Patient Language: Tongan Prescriptions: No Action ferrous sulfate 325 mg (65 mg iron) tablet 325 mg PO DAILY Qty: 90 0RF (DME) Dexcom G7 Sensor Device See Rx Instructions .ROUTE .MEDSUPPLY Qty: 9 3RF Rx Instructions: Use to monitor glcuose (DME) Omnipod 5 G6 Intro Kit (Gen 5) Cartridge See Rx Instructions .ROUTE .MEDSUPPLY Qty: 1 0RF Rx Instructions: As directed insulin glargine [Lantus Solostar U-100 Insulin] 100 unit/mL (3 mL) insulin pen 50 unit subcut DAILY PRN (Reason: insulin pump malfunction ) Qty: 45 1RF (DME) Dexcom G6 Transmitter Device See Rx Instructions .ROUTE .MEDSUPPLY Qty: 1 3RF Rx Instructions: Use to monitor glucose; change every 90 days lisinopril 40 mg tablet 40 mg PO DAILY Qty: 90 2RF rosuvastatin 5 mg tablet 5 mg PO DAILY Qty: 90 1RF diphenhydramine HCl [Benadryl] 25 mg capsule 25 mg PO .nightly PRN (DME) OneTouch Verio test strips Strip See Rx Instructions .Route Qty: 400 2RF Rx Instructions: Use to Check Glucose 4-6 times daily (DME) pen needle, diabetic [BD Sydnie 2nd Gen Pen Needle] 32 gauge x 5/32 needle See Rx Instructions .ROUTE .COMPLEX Qty: 400 1RF Dose Instruction: USE UP TO 4 TIMES DAILY WITH INSULIN INJECTIONS Rx Instructions: USE UP TO 4 TIMES DAILY WITH INSULIN INJECTIONS (DME) insulin pump cart,automated,BT Cartridge See Rx Instructions .ROUTE .MEDSUPPLY Qty: 45 3RF Rx Instructions: change every 48 hours (DME) Dexcom G6 Sensor Device See Rx Instructions .ROUTE .MEDSUPPLY Qty: 9 4RF Rx Instructions: Use to Monitor Glucose ; Change every 10 days duloxetine 60 mg capsule,delayed release(DR/EC) See Rx Instructions .ROUTE .COMPLEX Qty: 90 1RF Dose Instruction: TAKE 1 CAPSULE BY MOUTH DAILY Rx Instructions: TAKE 1 CAPSULE BY MOUTH DAILY insulin lispro [Humalog U-100 Insulin] 100 unit/mL solution 110 unit continuous subcutaneous infusion DAILY Qty: 100 1RF cholecalciferol (vitamin D3) 1,250 mcg (50,000 unit) capsule 1,250 mcg PO WEEKLY Qty: 12 0RF Follow-up/Referrals: Anju Rodriguez, [employer] CONCRETE BATCHER-C [Primary Care Provider] - 1 Week
[2025-03-01 17:16] LABS: Add Urine Microscopic? YES; Appearance Urine Clear (Clear); Glucose Urine UA Negative (Negative); Leukocyte Esterase Ur Negative LEU/UL (Negative); Nitrate Urine Negative (Negative); Specific Grav Ur 1.019 (1.001-1.035)
[2025-03-01 17:16] LABS: Hematocrit 41.2 % (42.0-52.0); Hemoglobin 13.4 g/dL (14.0-18.0); Immature Granulocyte Percent A 0.1 % (0-0.5); Lymphocytes Absolute Auto 1.34 K/mm3 (0.9-3.2); Mean Corpuscular HGB Conc 32.5 g/dl (32-36); Mean Corpuscular Hemoglobin 29.3 pg (26-34); Mean Corpuscular Volume 90.2 fl (80-100); Nucleated Red Blood Cells Absolute Auto 0.000 K/mm3 (0.0-0.012); Nucleated Red Blood Cells Perc 0.0 % (0.0-0.2); Platelet Count Result 240 k/mm3 (150-375); Red Blood Count 4.57 M/mm3 (4.6-6.20); White Blood Count 8.1 K/mm3 (4.5-10.0)
[2025-03-01 17:33] LABS: Alanine Aminotransferase 30 U/L (6-50); Albumin Level 4.1 g/dL (3.5-5.1); Alkaline Phosphatase 67 U/L (38-126); Anion Gap 6 mmol/L (4-12); Aspartate Amino Transferase 37 U/L (17-59); Bilirubin,Total 1.1 mg/dL (0.2-1.3); Blood Urea Nitrogen 29 mg/dL (9-20); Calcium 10.0 mg/dL (8.4-10.2); Carbon Dioxide 30 mmol/L (22-30); Chloride 103 mmol/L (98-107); Estimated CRCL calculation 74 ml/min; Estimated Glomerular Filt Rate 56; Glucose 119 mg/dL (65-110); Lipase 17 U/L (23-300); Potassium 5.2 mmol/L (3.4-5.0); Sodium 139 mmol/L (137-145); Total Protein 7.2 g/dL (6.3-8.2)
[2025-03-01 17:47] LABS: Influenza A QL RT-PCR Negative (Negative); Influenza B QL RT-PCR Negative (Negative); RSV RNA, RT-PCR Negative (Negative); SARS-CoV-2 RNA PCR Negative (Negative)
[2025-03-01 18:21] VITALS: BP 103/63; PULSE 93; RESP 19; O2SAT 99
== END 2025-03-01 18:22 | disposition home or self-care (01) ==
PROVIDERS: Emergency Provider Emergency Medicine; PCP Nurse Practitioner Family
DX: M54.9 Dorsalgia, unspecified (principal); R53.83 Other fatigue; Z20.822 Contact with and (suspected) exposure to COVID-19; E10.319 Type 1 diabetes mellitus with unspecified diabetic retinopathy without macular edema; E10.22 Type 1 diabetes mellitus with diabetic chronic kidney disease; N18.30 Chronic kidney disease, stage 3 unspecified; I12.9 Hypertensive chronic kidney disease with stage 1 through stage 4 chronic kidney disease, or unspecified chronic kidney disease; E10.69 Type 1 diabetes mellitus with other specified complication; N31.9 Neuromuscular dysfunction of bladder, unspecified; E10.40 Type 1 diabetes mellitus with diabetic neuropathy, unspecified; E55.9 Vitamin D deficiency, unspecified; Z96.41 Presence of insulin pump (external) (internal); Z79.4 Long term (current) use of insulin; Z79.899 Other long term (current) drug therapy
CPT/HCPCS: 36415; 80053; 81001; 83690; 85025; 87637; 96361; 96374; 96375; 99284; J2270; J2405; J7030